=== PATIENT | male | born 1940 | race Caucasian/White ===

== ENCOUNTER 2017-07-29 18:01 | Inpatient (IN) | payer OTHER, MEDICAID, MEDICARE ==
[~2017-07-29] VITALS: Ht 165.1 cm; Wt 90.0 kg
[~2017-07-29 18:01] MED LIST: ATOR40TA49 PO; CO Q60CA2 PO; FISHOIL PO; FURO20 PO; GLUCTAB PO; LISI2.5T55 PO; LUTE20CA PO; METO25 PO; MULTTAB50 PO; PERC5TAB12 PO; PRAV10 PO; ST J81CH PO; TAMS0.4C67 PO
[2017-07-29 18:02] VITALS: BP 209/122; PULSE 79; RESP 18; TEMP 97.7; O2SAT 93
--- NOTE | 2017-07-29 18:44 | RADRPT ---
EXAM DATE/TIME: 07/29/2017 18:20 [place] COMPARISON: CHEST PA & LAT, June 14, 2012, 8:29. INDICATIONS : Shortness of breath. MEDICAL HISTORY : Hypertension. Chronic obstructive pulmonary disease. Diabetes mellitus type II. SURGICAL HISTORY : CABG. ENCOUNTER: Initial ACUITY: 1 week PAIN SCORE: 0/10 LOCATION: Bilateral chest FINDINGS: Interval median sternotomy. Trace bilateral pleural effusions with associated airspace disease in the lower lobes. Cardiac silhouette is minimally prominent. There is diffuse interstitial prominence. Re mainder of the exam is unchanged. CONCLUSION: 1. Mild cardiomegaly and positive fluid balance. 2. Trace bilateral pleural effusions and associated airspace disease at the lung bases, presumably at electasis. Sabino Fuentes MD on July 29, 2017 at 18:41 Board Certified Radiologist. This report was verified electronically.
[2017-07-29 21:08] LABS: AUTOMATED NEUTROPHIL # 4.4 TH/MM3 (1.8-7.7); BASOPHIL % 0.3 % (0.0-2.0); EOSINOPHIL # 0.1 TH/MM3 (0-0.4); EOSINOPHIL % 1.3 % (0.0-4.0); HEMATOCRIT 32.5 % (39.0-51.0); HEMOGLOBIN 10.6 GM/DL (13.0-17.0); LYMPH % 21.7 % (9.0-44.0); LYMPHOCYTE # 1.5 TH/MM3 (1.0-4.8); MEAN CELL VOLUME 97.2 FL (80.0-100.0); MEAN CORPUSCULAR HEMOGLOBIN 31.6 PG (27.0-34.0); MEAN CORPUSCULAR HGB CONC 32.5 % (32.0-36.0); MEAN PLATELET VOLUME 7.9 FL (7.0-11.0); MONO % 12.6 % (0.0-8.0); MONOCYTE # 0.9 TH/MM3 (0-0.9); NEUT % 64.1 % (16.0-70.0); PLATELET COUNT 250 TH/MM3 (150-450); RED BLOOD COUNT 3.34 MIL/MM3 (4.50-5.90); RED CELL DISTRIBUTION WIDTH 15.5 % (11.6-17.2); WHITE BLOOD COUNT 6.8 TH/MM3 (4.0-11.0)
[2017-07-29 21:34] LABS: ALBUMIN 3.5 GM/DL (3.4-5.0); AST (GOT) 21 U/L (15-37); BICARBONATE 22.2 MEQ/L (21.0-32.0); BLOOD UREA NITROGEN 33 MG/DL (7-18); CALCIUM 8.6 MG/DL (8.5-10.1); CHLORIDE 111 MEQ/L (98-107); CREATININE 1.87 MG/DL (0.60-1.30); GLOMERULAR FILTRATION RATE 35 ML/MIN (>89); GLUCOSE,RANDOM 89 MG/DL (74-106); SODIUM (NA) 142 MEQ/L (136-145)
[2017-07-29 21:35] LABS: ALT (GPT) 19 U/L (12-78)
[2017-07-29 21:39] LABS: ALKALINE PHOSPHATASE 91 U/L (45-117); TOTAL BILIRUBIN ADULT 0.4 MG/DL (0.2-1.0); TOTAL PROTEIN 7.1 GM/DL (6.4-8.2); TROPONIN I LESS THAN 0.02 NG/ML (0.02-0.05)
[2017-07-29 22:03] LABS: PROTHROMBIN TIME - PATIENT 10.4 SEC (9.8-11.6)
--- NOTE | 2017-07-29 22:55 | PD ---
HPI Chief Complaint: Respiratory Distress Time Seen by Provider: 22:51 Travel History International Travel<30 days: No Contact w/Intl Traveler<30days: No Traveled to known affect area: No History of Present Illness HPI The patient is a 77 year old a male who presents to the [facility] emergency department with a history of shortness of breath associated with chest pressure that began 3 days ago and is gradually getting worse with time. He has a more frequent cough that is occasionally productive of yellow sputum. He reports that his cough is slightly worse than usual. He does have a history of COPD. The patient continues to smoke 1 pack of cigarettes daily. The patient also has a known history of coronary artery disease with coronary artery bypass grafting 5 years ago. 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 He cannot recall when he last had a stress test. He reports that the symptoms of shortness of breath are similar to his symptoms prior to having his bypass. He does also have a history of congestive heart failure. He is on Lasix 20 mg every morning. He denies having any recent changes in the dose of his medicine. He reports that he has had increased lower extremity edema. He denies having any calf pain or erythema. He denies any prior history of DVT or PE. On review of systems otherwise, the patient denies having any known recent fevers, neck pain, abdominal pain, vomiting, urinary symptoms, or neurologic symptoms. The patient incidentally reports that 2 weeks ago he did have a prolonged illness with diarrhea and was seen in his doctor's office, IV was obtained and he was hydrated. The patient reports that his stool studies were negative for C. difficile. He reports that he has been moving his bowels regularly since then. He had a normal bowel movement today [facility] Past Medical History Narrative Medical The patient's past medical history is significant for CAD, hypertension, CHF, COPD tobacco abuse, obesity, hyperlipidemia. Automation Controls Expert: [facility]- Dr. Guzman. PCP: [place] kali Hoffman Anticoagulant Therapy: Yes Blood Disorders: No Anxiety: No Depression: No Cancer: No Cardiac Catheterization: Yes (X 1) Cardiovascular Problems: Yes (CABG, HTN, cholesterol) Congestive Heart Failure: Yes COPD: Yes Coronary Artery Disease: Yes Diabetes: Yes Endocrine: Yes Gastrointestinal Disorders: Yes (GASTRIC BYPASS Jun) Genitourinary: No Hypertension: Yes Musculoskeletal: No Neurologic: No Psychiatric: No Reproductive: No Respiratory: Yes Past Surgical History Narrative Surgical The patient's past surgical history is significant for CABG of 2 vessels, history of cardiac catheterization. Coronary Artery Bypass Graft: Yes (3 VESSELS) Pacemaker: No Other Surgery: Yes (COLONSCOPY) Social History Alcohol Use: No Tobacco Use: Yes (1 pack per day) Substance Use: No Allergies-Medications (Allergen,Severity, Reaction): Coded Allergies: No Known Allergies (Unverified , 12/16/12) Reported Meds & Prescriptions Reported Meds & Active Scripts Active Flomax (Tamsulosin HCl) 0.4 Mg Cap 0.4 Mg PO DAILY 10 Days Reported Lasix 20 Mg Tab (Furosemide) 20 Mg Tab 20 Mg PO DAILY Lipitor 40 Mg Tab (Atorvastatin Calcium) 40 Mg Tab 40 Mg PO DAILY Pravastatin Sodium (Pravastatin Sod) 10 Mg Tab 10 Mg PO DAILY Aspirin 81 mg chewable (Aspirin) 81 Mg Chw 81 Mg PO DAILY Metoprolol Tartrate 25 mg (Metoprolol Tartrate) 25 Mg Tab 50 Mg PO DAILY Co Q 10 (Coenzyme Q10) 60 Mg Cap 60 Mg PO DAILY Lutein 20 Mg Cap 20 Mg PO DAILY Multi Vitamin Mens (Multiple Vitamin) Mens Tab 1 Tab PO DAILY Fish Oil Oil 1 Dose PO DAILY Lisinopril 2.5 mg (Lisinopril) 2.5 Mg Tab 5 Mg PO DAILY @ 1400 HOLD FOR SBP < 120 Review of Systems Except as stated in HPI: all other systems reviewed are Neg General / Constitutional: No: Fever Eyes: No: Visual changes HENT: No: Headaches Cardiovascular: Positive: Chest Pain or Discomfort, Dyspnea on exertion, Edema Respiratory: Positive: Cough, Shortness of Breath Gastrointestinal: No: Nausea, Vomiting, Diarrhea, Abdominal Pain Genitourinary: No: Dysuria Musculoskeletal: No: Pain Skin: No Rash Neurologic: No: Weakness, Focal Abnormalities, Change in Mentation, Slurred Speech, Sensory Disturbance Psychiatric: No: Depression Endocrine: No: Polydipsia Hematologic/Lymphatic: No: Easy Bruising Physical Exam Narrative General: The patient is a well-developed well-nourished male in no acute distress. Head and Neck exam: Head is normocephalic atraumatic. Eyes: EOMI, pupils are equal round and reactive to light. Nose: Midline septum with pink mucous membranes Mouth: Dentition unremarkable. Moist mucus membranes. Posterior oropharynx is not erythematous. No tonsillar hypertrophy. Uvula midline. Airway patent. Neck: No palpable lymphadenopathy. No nuchal rigidity. No thyromegaly. Cardiovascular: Regular rate and rhythm without murmurs, gallops, or rubs. No pulse deficit to the extremities on simultaneous auscultation and palpation of his radial artery. Lungs: Crackles audible in bilateral lung bases. No rhonchi audible. The patient has soft expiratory wheezes audible anteriorly. No accessory muscle use noted. No tripoding or paroxysmal abdominal breathing. Abdomen: Soft, without tenderness to palpation in all 4 quadrants of the abdomen. No guarding, rebound, or rigidity. Normal bowel sounds are audible. No tenderness on palpation of McBurney's point. Negative Grant sign. Extremities: No clubbing or cyanosis. The patient has 1+ pitting edema. No calf tenderness on palpation. Negative Homans sign. No palpable cords. 2+ pulses in all 4 extremities. Back: No spinous process tenderness to palpation. No costovertebral angle tenderness to palpation. Neurologic Exam: Grossly nonfocal. Skin Exam: No rash noted. Intact skin that is warm and dry. Data Data Last Documented VS Vital Signs Date Time Temp Pulse Resp B/P (MAP) Pulse Ox O2 Delivery O2 Flow Rate FiO2 07/30/17 00:00 97.5 73 16 182/98 (126) 94 07/29/17 18:02 Room Air Orders Orders Complete Blood Count With Diff (07/29/17 18:10) Comprehensive Metabolic Panel (07/29/17 18:10) B-Type Natriuretic Peptide (07/29/17 18:10) Act Partial Throm Time (Ptt) (07/29/17 18:10) Prothrombin Time / Inr (Pt) (07/29/17 18:10) Magnesium (Mg) (07/29/17 18:10) Ckmb (Isoenzyme) Profile (07/29/17 18:10) Troponin I (07/29/17 18:10) Electrocardiogram (07/29/17 18:10) Chest, Pa & Lat (07/29/17 18:10) CKMB (07/29/17 20:07) CKMB% (07/29/17 20:07) Furosemide Inj (Lasix Inj) (07/29/17 23:30) Nitroglycerin Sl (Nitrostat Sl) (07/29/17 23:30) Nitroglycerin 2% Oint (Nitroglycerin 2% (07/29/17 23:30) Aspirin Chew (Aspirin Chew) (07/29/17 23:30) Admit Order (Ed Use Only) (07/30/17 00:05) Labs Laboratory Tests Test 07/29/17 20:07 White Blood Count 6.8 TH/MM3 Red Blood Count 3.34 MIL/MM3 Hemoglobin 10.6 GM/DL Hematocrit 32.5 % Mean Corpuscular Volume 97.2 FL Mean Corpuscular Hemoglobin 31.6 PG Mean Corpuscular Hemoglobin Concent 32.5 % Red Cell Distribution Width 15.5 % Platelet Count 250 TH/MM3 Mean Platelet Volume 7.9 FL Neutrophils (%) (Auto) 64.1 % Lymphocytes (%) (Auto) 21.7 % Monocytes (%) (Auto) 12.6 % Eosinophils (%) (Auto) 1.3 % Basophils (%) (Auto) 0.3 % Neutrophils # (Auto) 4.4 TH/MM3 Lymphocytes # (Auto) 1.5 TH/MM3 Monocytes # (Auto) 0.9 TH/MM3 Eosinophils # (Auto) 0.1 TH/MM3 Basophils # (Auto) 0.0 TH/MM3 CBC Comment DIFF FINAL Differential Comment Prothrombin Time 10.4 SEC Prothromb Time International Ratio 1.0 RATIO Activated Partial Thromboplast Time 26.5 SEC Blood Urea Nitrogen 33 MG/DL Creatinine 1.87 MG/DL Random Glucose 89 MG/DL Total Protein 7.1 GM/DL Albumin 3.5 GM/DL Calcium Level 8.6 MG/DL Magnesium Level 2.0 MG/DL Alkaline Phosphatase 91 U/L Aspartate Amino Transf (AST/SGOT) 21 U/L Alanine Aminotransferase (ALT/SGPT) 19 U/L Total Bilirubin 0.4 MG/DL Sodium Level 142 MEQ/L Potassium Level 4.0 MEQ/L Chloride Level 111 MEQ/L Carbon Dioxide Level 22.2 MEQ/L Anion Gap 9 MEQ/L Estimat Glomerular Filtration Rate 35 ML/MIN Total Creatine Kinase 158 U/L Creatine Kinase MB 1.8 NG/ML Troponin I LESS THAN 0.02 NG/ML B-Type Natriuretic Peptide 888 PG/ML MDM Medical Decision Making Medical Screen Exam Complete: Yes Emergency Medical Condition: Yes Medical Record Reviewed: Yes Interpretation(s) Last Impressions Chest X-Ray 07/29/170 Signed Impressions: Service Date/Time: Saturday, July 29, 2017 18:20 - CONCLUSION: 1. Mild cardiomegaly and positive fluid balance. 2. Trace bilateral pleural effusions and associated airspace disease at the lung bases, presumably atelectasis. Sabino Fuentes MD Differential Diagnosis Acute coronary syndrome, versus congestive heart failure exacerbation, versus COPD exacerbation, versus pneumonia, versus pulmonary embolism Narrative Course During the course of the patient's emergency department visit, the patient's history, examination, and differential diagnosis were reviewed with the patient. The patient was placed on a director of cardiac rehabilitation with oximetry and frequent blood pressure monitoring. The patient had IV access obtained and blood work sent for analysis. An EKG was ordered. The patient was initially provided the patient was given Lasix 40 mg IV, nitroglycerin 1 inch to the chest wall, nitroglycerin sublingual every 5 minutes 3 as needed chest pain, aspirin 324 mg p.o. 1. The patient's laboratory studies were reviewed and remarkable for a white count of 6.8, hemoglobin 10.6, platelets 250 with 12.6 monocytes, CMP is remarkable for a chloride of 111, BUN 33, creatinine 1.87, cardiac enzymes within normal limits, BNP 888. PT 10.4, PTT 26.5. Chest x-ray consistent with pulmonary edema with cardiomegaly. The patient's results were discussed with the patient, including the plan of care. I explained that further testing and/ or monitoring is indicated based on the patient's history, examination, and/ or laboratory findings. Therefore, I recommended admission for additional evaluation. The patient expressed understanding and was agreeable with this plan. The patient was admitted to the hospital in stable condition and sent to a bed under the care of [-]. Physician Communication Physician Communication The patient's case including history, pertinent physical examination findings, and laboratory studies were discussed with Dr. Ferrara. It was agreed that the patient would be admitted to the [facility] service. Diagnosis Primary Impression: CHF exacerbation Qualified Codes: I50.9 - Heart failure, unspecified Admitting Information Admitting Physician Requests: Scarlet Dahl MD Jul 29, 2017 22:55
[2017-07-29] MEDS ORDERED: FUROSEMIDE 40 MG/4 ML VIAL IV PUSH ONE (23:30)
[2017-07-29] MEDS ORDERED: NITROGLYCERIN 0.4 MG SL 25 TABS/BTL SL PRN (23:30)
[2017-07-29] MEDS ORDERED: ASPIRIN 81 MG CHEW TAB CHEW ONE (23:30)
[2017-07-29] MEDS ORDERED: NITROGLYCERIN 2% OINT 1 GM PACKET TOPICAL ONE (23:30)
[2017-07-30] VITALS (13 sets, daily range): BP systolic 131–182; BP diastolic 65–98; PULSE 64–82; RESP 16–19; TEMP 97.5–98.2; O2SAT 90–94
[2017-07-30] MEDS ORDERED: ACETAMINOPHEN 325 MG TAB PO PRN (00:45)
[2017-07-30] MEDS ORDERED: DEXTROSE 50% IN WATER 50 ML VIAL(D50) IV PUSH PRN (00:45)
[2017-07-30] MEDS ORDERED: ONDANSETRON HCL 4 MG/2 ML VIAL IVP PRN (00:45)
[2017-07-30] MEDS ORDERED: GLUCAGON 1 MG/ML VIAL OTHER PRN (00:45)
[2017-07-30] MEDS ORDERED: RESP: ALBUTEROL 2.5 MG/IPRATROPIUM 0.5 MG NEB (PRN) NEB (00:45)
[2017-07-30] MEDS ORDERED: SODIUM CHLORIDE 0.9% FLUSH 10 ML FLUSH IV FLUSH PRN (00:45)
[2017-07-30] MEDS: HEPARIN SODIUM - SQ 10,000 UNITS/ML VIAL SQ SCH ×3 (01:37→17:31)
--- NOTE | 2017-07-30 02:06 | HHI.HP ---
[facility] Unknown Admission Diagnosis CHF exacerbation, CP r/o ACS Diagnoses: Travel History International Travel<30 Days: No Contact w/Intl Traveler <30 Da: No Traveled to Known Affected Are: No History of Present Illness 77-year-old male with a past medical history significant for coronary artery disease, diabetes mellitus, COPD, hypertension, hyperlipidemia and CHF (no recent echo for comparison) presents to the emergency department for evaluation of shortness of breath. The patient reports that for the past 3 days he has had increasing shortness of breath. He endorses simultaneous lower extremity bilateral edema. The patient states that shortness of breath is significantly worse with exertion and with lying flat. He endorses 3 days of a cough productive of yellow sputum. He denies any fever/chills. Denies any chest pain. No nausea/vomiting/diarrhea. Review of Systems Except as stated in HPI: all other systems reviewed are Neg Past Family Social History Past Medical History CAD status post CABG Diabetes mellitus COPD Hypertension Hyperlipidemia CHF Past Surgical History CABG 2 Cholecystectomy Reported Medications Reported Meds & Active Scripts Active Flomax (Tamsulosin HCl) 0.4 Mg Cap 0.4 Mg PO DAILY 10 Days Reported Lasix 20 Mg Tab (Furosemide) 20 Mg Tab 20 Mg PO DAILY Lipitor 40 Mg Tab (Atorvastatin Calcium) 40 Mg Tab 40 Mg PO DAILY Pravastatin Sodium (Pravastatin Sod) 10 Mg Tab 10 Mg PO DAILY Aspirin 81 mg chewable (Aspirin) 81 Mg Chw 81 Mg PO DAILY Metoprolol Tartrate 25 mg (Metoprolol Tartrate) 25 Mg Tab 50 Mg PO DAILY Co Q 10 (Coenzyme Q10) 60 Mg Cap 60 Mg PO DAILY Lutein 20 Mg Cap 20 Mg PO DAILY Multi Vitamin Mens (Multiple Vitamin) Mens Tab 1 Tab PO DAILY Fish Oil Oil 1 Dose PO DAILY Lisinopril 2.5 mg (Lisinopril) 2.5 Mg Tab 5 Mg PO DAILY @ 1400 HOLD FOR SBP < 120 Allergies: Coded Allergies: No Known Allergies (Unverified , 12/16/12) Family History Father with coronary artery disease Social History Smokes proximally one pack per day. Denies alcohol, illicit drugs. Physical Exam Vital Signs Vital Signs Date Time Temp Pulse Resp B/P (MAP) Pulse Ox O2 Delivery O2 Flow Rate FiO2 07/29/17 18:02 97.7 79 18 209/122 (151) 93 Room Air Physical Exam GENERAL: Obese, male sitting up in bed SKIN: No rashes, ecchymoses or lesions. Cool and dry. HEAD: Atraumatic. Normocephalic. No temporal or scalp tenderness. EYES: Pupils equal round and reactive. Extraocular motions intact. No scleral icterus. No injection or drainage. ENT: Nose without bleeding, purulent drainage or septal hematoma. Throat without erythema, tonsillar hypertrophy or exudate. Uvula midline. Airway patent. NECK: Trachea midline. No JVD or lymphadenopathy. Supple, nontender, no meningeal signs. CARDIOVASCULAR: Regular rate and rhythm without murmurs, gallops, or rubs. RESPIRATORY: Bilateral crackles in the bases. No wheezes, rales, rhonchi GASTROINTESTINAL: Abdomen soft, non-tender, nondistended. No hepato-splenomegaly , or palpable masses. No guarding. MUSCULOSKELETAL: 2+ pitting edema to the knees bilaterally. NEUROLOGICAL: Awake and alert. Cranial nerves II through XII intact. Motor and sensory grossly within normal limits. Normal speech. Laboratory Laboratory Tests Test 07/29/17 20:07 White Blood Count 6.8 Red Blood Count 3.34 Hemoglobin 10.6 Hematocrit 32.5 Mean Corpuscular Volume 97.2 Mean Corpuscular Hemoglobin 31.6 Mean Corpuscular Hemoglobin Concent 32.5 Red Cell Distribution Width 15.5 Platelet Count 250 Mean Platelet Volume 7.9 Neutrophils (%) (Auto) 64.1 Lymphocytes (%) (Auto) 21.7 Monocytes (%) (Auto) 12.6 Eosinophils (%) (Auto) 1.3 Basophils (%) (Auto) 0.3 Neutrophils # (Auto) 4.4 Lymphocytes # (Auto) 1.5 Monocytes # (Auto) 0.9 Eosinophils # (Auto) 0.1 Basophils # (Auto) 0.0 CBC Comment DIFF FINAL Differential Comment Prothrombin Time 10.4 Prothromb Time International Ratio 1.0 Activated Partial Thromboplast Time 26.5 Blood Urea Nitrogen 33 Creatinine 1.87 Random Glucose 89 Total Protein 7.1 Albumin 3.5 Calcium Level 8.6 Magnesium Level 2.0 Alkaline Phosphatase 91 Aspartate Amino Transf (AST/SGOT) 21 Alanine Aminotransferase (ALT/SGPT) 19 Total Bilirubin 0.4 Sodium Level 142 Potassium Level 4.0 Chloride Level 111 Carbon Dioxide Level 22.2 Anion Gap 9 Estimat Glomerular Filtration Rate 35 Total Creatine Kinase 158 Creatine Kinase MB 1.8 Troponin I LESS THAN 0.02 B-Type Natriuretic Peptide 888 Result Diagram: 07/29/17200607/29/172006 Caprini VTE Risk Assessment Caprini VTE Risk Assessment: Mod/High Risk (score >= 2) Caprini Risk Assessment Model Point Value = 1 Point Value = 2 Point Value = 3 Point Value = 5 Age 41-60 Minor surgery BMI > 25 kg/m2 Swollen legs Varicose veins or History of unexplained or recurrent spontaneous Oral contraceptives or hormone replacement Sepsis (< 1 month) Serious lung disease, including pneumonia (< 1 month) Abnormal pulmonary function Acute myocardial infarction Congestive heart failure (< 1 month) History of inflammatory bowel disease Medical patient at bed rest Age 61-74 Arthroscopic surgery Major open surgery (> 45 min) Laparoscopic surgery (> 45 min) Malignancy Confined to bed (> 72 hours) Immobilizing plaster cast Central venous access Age >= 75 History of VTE Family history of VTE Factor V Leiden Prothrombin [id number] Lupus anticoagulant Anticardiolipin antibodies Elevated serum homocysteine Heparin-induced thrombocytopenia Other congenital or acquired thrombophilia Stroke (< 1 month) Elective arthroplasty Hip, pelvis, or leg fracture Acute spinal cord injury (< 1 month) Prophylaxis Regimen Total Risk Factor Score Risk Level Prophylaxis Regimen 0-1 Low Early ambulation 2 Moderate Order ONE of the following: *Sequential Compression Device (SCD) *Heparin 5000 units SQ BID 3-4 Higher Order ONE of the following medications: *Heparin 5000 units SQ TID *Enoxaparin/Lovenox 40 mg SQ daily (WT < 150 kg, CrCl > 30 mL/min) *Enoxaparin/Lovenox 30 mg SQ daily (WT < 150 kg, CrCl > 10-29 mL/min) *Enoxaparin/Lovenox 30 mg SQ BID (WT < 150 kg, CrCl > 30 mL/min) AND/OR *Sequential Compression Device (SCD) 5 or more Highest Order ONE of the following medications: *Heparin 5000 units SQ TID (Preferred with Epidurals) *Enoxaparin/Lovenox 40 mg SQ daily (WT < 150 kg, CrCl > 30 mL/min) *Enoxaparin/Lovenox 30 mg SQ daily (WT < 150 kg, CrCl > 10-29 mL/min) *Enoxaparin/Lovenox 30 mg SQ BID (WT < 150 kg, CrCl > 30 mL/min) AND *Sequential Compression Device (SCD) Assessment and Plan Assessment and Plan Assessment/plan: 1. CHF exacerbation Chest x-ray significant for pulmonary vascular congestion, trace bilateral pleural effusions and cardiomegaly, personally reviewed BNP 888 IV Lasix Supplemental oxygen as needed Echo pending Patient previously seen by Dr. Sanchez approximately 5 years ago 2. COPD Duo nebs when necessary 3. Diabetes mellitus Siding scale insulin Monitor blood glucose 4. Hypertension/hyperlipidemia/CAD Continue home medications once reconciled 5. BENNETT BUN/creatinine 33/1.87 Monitor renal function Likely chronic component, baseline unknown Consider nephrology consult if renal function does not improve FEN Heart healthy diet Electrolytes: Monitor and replete when necessary Heparin Tanja Ferrara MD Jul 30, 2017 02:06
[2017-07-30 05:49] LABS: TROPONIN I 0.02 NG/ML (0.02-0.05)
[2017-07-30] MEDS: INSULIN ASPART SUPPLEMENTAL SCALE SQ SCH ×4 (08:00→22:08)
--- NOTE | 2017-07-30 08:01 | EKG ---
Date Performed: 07/29/2017 Time Performed: 19:58:59 PTAGE: 77 years EKG: Sinus rhythm WITH OCCASIONAL SUPRAVENTRICULAR PREMATURE COMPLEXES MARKED LEFT AXIS DEVIATION SEPTAL MYOCARDIAL IN FARCTION ABNORMAL ECG INTERPRETATION BASED ON A DEFAULT AGE OF 40 YEARS PREVIOUS TRACING : 07/22/2017 07.07 DOCTOR: David Peterson Interpretating Date/Time 07/30/2017 07:59:17
[2017-07-30] MEDS ORDERED: FUROSEMIDE 40 MG/4 ML VIAL IV PUSH SCH (09:00)
[2017-07-30] MEDS: SODIUM CHLORIDE 0.9% FLUSH 10 ML FLUSH IV FLUSH SCH ×2 (09:38→21:00)
[2017-07-30 14:03] LABS: TROPONIN I LESS THAN 0.02 NG/ML (0.02-0.05)
[2017-07-30 14:07] LABS: BICARBONATE 20.5 MEQ/L (21.0-32.0); CALCIUM 8.2 MG/DL (8.5-10.1); CREATININE 3.82 MG/DL (0.60-1.30)
--- NOTE | 2017-07-30 14:46 | HHI.PR ---
Subjective Remarks feeling much better leg swelling per patient improved Objective Vitals Vital Signs Date Time Temp Pulse Resp B/P (MAP) Pulse Ox O2 Delivery O2 Flow Rate FiO2 07/30/17 12:11 98.1 64 18 152/74 (100) 93 07/30/17 09:29 Nasal Cannula 1.00 07/30/17 08:11 98.2 75 19 156/74 (101) 91 07/30/17 06:21 94 Nasal Cannula 1.00 07/30/17 04:00 97.7 76 16 131/74 (93) 92 07/30/17 00:00 97.5 73 16 182/98 (126) 94 07/29/17 18:02 97.7 79 18 209/122 (151) 93 Room Air Result Diagram: 07/29/17200607/30/17 1252 Imaging Last Impressions Chest X-Ray 07/29/17 1810 Signed Impressions: Service Date/Time: Saturday, July 29, 2017 18:20 - CONCLUSION: 1. Mild cardiomegaly and positive fluid balance. 2. Trace bilateral pleural effusions and associated airspace disease at the lung bases, presumably atelectasis. Sabino Fuentes MD Objective Remarks awake and alert, no acute distress anicteric decreased breeth sounds bases, no rales regular rhythm abdomen soft trace ankle edema neuro exam- non focal A/P Assessment and Plan 77 years old 1. CHF exacerbation Chest x-ray significant for pulmonary vascular congestion, trace bilateral pleural effusions and cardiomegaly, personally reviewed BNP 888 Clinically feels better after diuresis - but we will hold Lasix with acute increase in creatinine Supplemental oxygen as needed Echo pending 2. COPD- no wheezes continue on duonebs q 6- per patient on this scheduled Duo nebs prn when necessary check walk test prior to DC 3. Diabetes mellitus- BS on lab 547 chekc a1C. repeated a stat BS now 187. continue to monitor Siding scale insulin Monitor blood glucose - as OP was on Glipiziede 2.5 mg bid- hold - his metformin was DC per patient due to diabetes teaching and reinforcement 4. Hypertension/hyperlipidemia/CAD home meds - on Lopressor 50 mg bid, Lisinopril 10 m g daiy, Lasix 20 mg daily- will hold both due to BENNETT simvastatin 20 mg , fenofibrate 160 mg daily 5. BENNETT on top of chronic Hyponatremia hold diuretics, hold ROBERTO gentle hydration- 42 cc/hr per - has CKI Nephrology consult Renal ultrasound I and O q shift HYperkalemia give x 1 Kayexalate FEN Heart healthy diet Electrolytes: Monitor and replete when necessary Heparin Marycruz Acevedo MD Jul 30, 2017 14:45
[2017-07-30] MEDS ORDERED: SODIUM POLYSTYRENE SULFONATE SUSP 15 GM/60 ML CUP PO ONE (15:00)
[2017-07-30] MEDS: SODIUM CHLOR 0.9% 1000 ML INJ 1,000 ML IV SCH (15:03)
--- NOTE | 2017-07-30 15:24 | EKG ---
Date Performed: 07/30/2017 Time Performed: 07:48:12 PTAGE: 77 years EKG: Sinus arrhythmia with multifocal PVCs with 1st degree A-V block Left axis deviation Poor R wave progression - probable normal variant Lateral T wave changes are nonspecific Low QRS voltages in limb leads Abnormal ECG PREVIOUS TRACING : 07/30/2017 05.27 DOCTOR: David Peterson Interpretating Date/Time 07/30/2017 15:22:03
--- NOTE | 2017-07-30 15:27 | EKG ---
Date Performed: 07/30/2017 Time Performed: 05:27:54 PTAGE: 77 years EKG: Sinus rhythm with PVC(s) with 1st degree A-V block Left axis deviation Poor R wave progression - probable normal variant Lateral ST-T changes are nonspecific Low QRS voltages in limb leads Abnormal ECG PREVIOUS TRACING : 07/29/2017 19.58 DOCTOR: David Peterson Interpretating Date/Time 07/30/2017 15:25:17
[2017-07-30] MEDS: RESP: ALBUTEROL 2.5 MG/IPRATROPIUM 0.5 MG NEB (SCH) NEB ×2 (16:42→21:17)
--- NOTE | 2017-07-30 16:51 | PD.CONS ---
[facility] Service Nephrology Consult Requested By Dr. Acevedo Reason for Consult BENNETT on CKD Primary Care Physician Unknown History of Present Illness Patient is a 77-year-old male with a past medical history significant for coronary artery disease, diabetes mellitus, COPD, hypertension, hyperlipidemia and CHF. Presents to ER for evaluation of shortness of breath. The patient reports that for the past 3 days he has had increasing shortness of breath, lower extremity bilateral edema, and orthopnea. He endorses 3 days of a cough productive of yellow sputum. Nephrology is consulted for worsening renal indices with a creatinine of 3.82 from 1.87 on admission. Also noted to be hyperkalemic at 5.6. Patient initially was treated with Lasix but now with worsening creatinine is being gently hydrated. Patient has a history of CKD per girlfriend and was taken off metformin over 4 months ago related to his kidney function. (Chandrika Cowan) Review of Systems Respiratory: COMPLAINS OF: Shortness of breath Cardiovascular: COMPLAINS OF: Lower Extremity Edema, Orthopnea, DENIES: Chest pain Gastrointestinal: DENIES: Diarrhea, Nausea, Vomiting (Chandrika Cowan) Past Family Social History Allergies: Coded Allergies: No Known Allergies (Unverified , 12/16/12) Past Medical History CAD Diabetes mellitus COPD Hypertension Hyperlipidemia CHF Past Surgical History CABG 2 Cholecystectomy Active Ordered Medications Current Medications Medications (Trade) Dose Ordered Sig/Chi Route Start Time Stop Time Status Last Admin (Nitrostat Sl) 0.4 mg Q5M PRN SL 07/29/17 23:30 (NS Flush) 2 ml UNSCH PRN IV FLUSH 07/30/17 00:45 (NS Flush) 2 ml BID IV FLUSH 07/30/17 09:00 07/30/17 09:38 (Tylenol) 650 mg Q4H PRN PO 07/30/17 00:45 (Zofran Inj) 4 mg Q6H PRN IVP 07/30/17 00:45 (Heparin Inj) 5,000 units Q8H SQ 07/30/17 01:00 07/30/17 09:39 (Lasix Inj) 40 mg BID@18 IV PUSH 07/30/17 09:00 Future Hold 07/30/17 09:40 (Duoneb Neb) 1 ampule Q4HR NEB PRN NEB 07/30/17 00:45 07/30/17 06:17 (D50w (Vial) Inj) 50 ml UNSCH PRN IV PUSH 07/30/17 00:45 (Glucagon Inj) 1 mg UNSCH PRN OTHER 07/30/17 00:45 (NovoLOG SUPPLEMENTAL SCALE) 1 ACHS SLIDING SCALE SQ 07/30/17 08:00 Sodium Chloride 1,000 ml @ 42 mls/hr [id number] IV 07/30/17 15:00 07/30/17 15:03 (Duoneb Neb) 1 ampule Q6HR NEB NEB 07/30/17 16:00 (Aspirin Chew) 81 mg DAILY PO 07/31/17 09:00 (Lopressor) 50 mg DAILY PO 07/31/17 09:00 (Pravachol) 10 mg DAILY PO 07/31/17 09:00 (Flomax) 0.4 mg DAILY PO 07/31/17 09:00 (Theragran) 1 tab DAILY PO 07/31/17 09:00 Family History Mother and father with CAD and diabetes Sister had ESRD on dialysis Social History Current smoker Denies ETOh use lives alone (Chandrika Cowan) Physical Exam Vital Signs Vital Signs Date Time Temp Pulse Resp B/P (MAP) Pulse Ox O2 Delivery O2 Flow Rate FiO2 07/30/17 16:25 97.6 74 18 158/65 (96) 92 07/30/17 12:11 98.1 64 18 152/74 (100) 93 07/30/17 09:29 Nasal Cannula 1.00 07/30/17 08:11 98.2 75 19 156/74 (101) 91 07/30/17 06:21 94 Nasal Cannula 1.00 07/30/17 04:00 97.7 76 16 131/74 (93) 92 07/30/17 00:00 97.5 73 16 182/98 (126) 94 07/29/17 18:02 97.7 79 18 209/122 (151) 93 Room Air Physical Exam GENERAL: Alert and oriented SKIN: Warm and dry. HEAD: Normocephalic. EYES: No scleral icterus. No injection or drainage. NECK: Supple, trachea midline. No JVD or lymphadenopathy. CARDIOVASCULAR: Regular rate and rhythm without murmurs, gallops, or rubs. RESPIRATORY: Breath sounds equal bilaterally, diminished. No accessory muscle use. O2 NC GASTROINTESTINAL: Abdomen soft, non-tender, nondistended. MUSCULOSKELETAL: No cyanosis. Moderate lower extremity edema BACK: Nontender without obvious deformity. No CVA tenderness. Laboratory Laboratory Tests Test 07/29/17 20:07 07/30/17 04:56 07/30/17 12:52 White Blood Count 6.8 Red Blood Count 3.34 Hemoglobin 10.6 Hematocrit 32.5 Mean Corpuscular Volume 97.2 Mean Corpuscular Hemoglobin 31.6 Mean Corpuscular Hemoglobin Concent 32.5 Red Cell Distribution Width 15.5 Platelet Count 250 Mean Platelet Volume 7.9 Neutrophils (%) (Auto) 64.1 Lymphocytes (%) (Auto) 21.7 Monocytes (%) (Auto) 12.6 Eosinophils (%) (Auto) 1.3 Basophils (%) (Auto) 0.3 Neutrophils # (Auto) 4.4 Lymphocytes # (Auto) 1.5 Monocytes # (Auto) 0.9 Eosinophils # (Auto) 0.1 Basophils # (Auto) 0.0 CBC Comment DIFF FINAL Differential Comment Prothrombin Time 10.4 Prothromb Time International Ratio 1.0 Activated Partial Thromboplast Time 26.5 Blood Urea Nitrogen 33 45 Creatinine 1.87 3.82 Random Glucose 89 547 Total Protein 7.1 Albumin 3.5 Calcium Level 8.6 8.2 Magnesium Level 2.0 Alkaline Phosphatase 91 Aspartate Amino Transf (AST/SGOT) 21 Alanine Aminotransferase (ALT/SGPT) 19 Total Bilirubin 0.4 Sodium Level 142 127 Potassium Level 4.0 5.6 Chloride Level 111 97 Carbon Dioxide Level 22.2 20.5 Anion Gap 9 10 Estimat Glomerular Filtration Rate 35 16 Total Creatine Kinase 158 152 87 Creatine Kinase MB 1.8 Troponin I LESS THAN 0.02 0.02 LESS THAN 0.02 B-Type Natriuretic Peptide 888 (Chandrika Cowan) Result Diagram: 07/29/17200607/30/17 1252 Imaging Last Impressions Chest X-Ray 07/29/17 1810 Signed Impressions: Service Date/Time: Saturday, July 29, 2017 18:20 - CONCLUSION: 1. Mild cardiomegaly and positive fluid balance. 2. Trace bilateral pleural effusions and associated airspace disease at the lung bases, presumably atelectasis. Sabino Fuentes MD (Chandrika Cowan) Assessment and Plan Problem List: (1) BENNETT (acute kidney injury) ICD Codes: N17.9 - Acute kidney failure, unspecified Plan: BENNETT on CKD. BENNETT from possible prerenal azotemia from diuresis CKD from diabetes vs HTN vs renovascular disease Creatinine of 3.82 from 1.87 on admission Hyperkalemic at 5.6 Kayaxalate given will repeat K level. Will order renal US UA C+S Maintain strict I+O's Avoid nephrotoxins Monitor UOP and BMP (2) Hyperkalemia ICD Codes: E87.5 - Hyperkalemia (3) CKD (chronic kidney disease) ICD Codes: N18.9 - Chronic kidney disease, unspecified (Chandrika Cowan) Problem List: (1) BENNETT (acute kidney injury) ICD Codes: N17.9 - Acute kidney failure, unspecified Plan: BENNETT on CKD. BENNETT from possible prerenal azotemia from diuresis CKD from diabetes vs HTN vs renovascular disease Creatinine of 3.82 from 1.87 on admission Hyperkalemic at 5.6 Kayexalate given will repeat K level. Will order renal US UA C+S Maintain strict I+O's Avoid nephrotoxins Monitor UOP and BMP. Patient seen and examined, agree with above. Most likely has chronic kidney disease and develop BENNETT. Follow the workup. 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 (2) Hyperkalemia ICD Codes: E87.5 - Hyperkalemia (3) CKD (chronic kidney disease) ICD Codes: N18.9 - Chronic kidney disease, unspecified (Elder Monterroso MD) Chandrika Cowan Jul 30, 2017 16:51 Elder Monterroso MD Jul 30, 2017 19:21
[2017-07-30 19:47] LABS: BILIRUBIN, URINE NEG (NEG); BLOOD, URINE TRACE (NEG); GLUCOSE,URINE NEG (NEG); KETONE, URINE NEG (NEG); MUCUS URINE FEW /lpf (OCC); NITRITE,URINE NEG (NEG); PH, URINE 5.5 (5.0-8.5); URINE COLOR LIGHT-YELLOW (YELLW/STRAW); URINE LEUKOCYTE ESTERASE NEG (NEG)
--- NOTE | 2017-07-30 22:22 | RADRPT ---
EXAM DATE/TIME: 07/30/2017 21:40 [place] COMPARISON: No previous studies available for comparison. INDICATIONS : Increased BUN and Creatinine. MEDICAL HISTORY : Hypercholesterolemia. Chronic obstructive pulmonary disease. Myocardial infarction. Congestive heart failure. Coronary artery disease. Anticoagulant therapy. Hypertension. Diabetes. Measles. SURGICAL HISTORY : Cholecystectomy. Gastric bypass. CABG. EGD/Colonoscopy. ENCOUNTER: Initial ACUITY: 1 day PAIN SCORE: 1/10 LOCATION: Bilateral flank MEASUREMENTS: RIGHT KIDNEY: 13.0 x 5.8 x 5.4 cm LEFT KIDNEY: 14.2 x 7.2 x 7.2 cm FINDINGS: RIGHT KIDNEY: Renal cortex is normal in thickness. The echogenicity is mildly increased. No hydronephrosis, stone, or mass. LEFT KIDNEY: Renal cortex is normal in thickness. The echogenicity is mildly increased.. No hydronephrosis, stone , or mass. Note is made of a 5.5 x 5.4 cm simple cyst. BLADDER: Within normal limits given the degree of distension. CONCLUSION: 1. Mildly increased echogenicity of the renal cortex suggesting underlying medical renal disease. 2. 5.5 x 5.4 cm simple cyst on the left. Ean Barlow MD on July 30, 2017 at 22:19 Board Certified Radiologist. This report was verified electronically.
[2017-07-31] VITALS (10 sets, daily range): BP systolic 127–158; BP diastolic 60–86; PULSE 67–86; RESP 16–18; TEMP 97.6–98; O2SAT 92–94
[2017-07-31] MEDS: HEPARIN SODIUM - SQ 10,000 UNITS/ML VIAL SQ SCH ×3 (00:11→17:31)
[2017-07-31] MEDS: RESP: ALBUTEROL 2.5 MG/IPRATROPIUM 0.5 MG NEB (SCH) NEB ×4 (02:54→21:19)
[2017-07-31 06:52] LABS: AUTOMATED NEUTROPHIL # 3.9 TH/MM3 (1.8-7.7); BASOPHIL % 0.7 % (0.0-2.0); EOSINOPHIL # 0.2 TH/MM3 (0-0.4); EOSINOPHIL % 2.9 % (0.0-4.0); HEMATOCRIT 30.9 % (39.0-51.0); HEMOGLOBIN 10.5 GM/DL (13.0-17.0); LYMPHOCYTE # 1.7 TH/MM3 (1.0-4.8); MEAN CELL VOLUME 96.1 FL (80.0-100.0); MEAN CORPUSCULAR HEMOGLOBIN 32.5 PG (27.0-34.0); MEAN CORPUSCULAR HGB CONC 33.8 % (32.0-36.0); MEAN PLATELET VOLUME 7.6 FL (7.0-11.0); MONO % 10.9 % (0.0-8.0); MONOCYTE # 0.7 TH/MM3 (0-0.9); NEUT % 59.5 % (16.0-70.0); PLATELET COUNT 256 TH/MM3 (150-450); RED BLOOD COUNT 3.22 MIL/MM3 (4.50-5.90); RED CELL DISTRIBUTION WIDTH 15.5 % (11.6-17.2); WHITE BLOOD COUNT 6.6 TH/MM3 (4.0-11.0)
[2017-07-31 07:15] LABS: PHOSPHORUS 4.1 MG/DL (2.5-4.9)
[2017-07-31 07:35] LABS: BICARBONATE 24.3 MEQ/L (21.0-32.0); CALCIUM 8.2 MG/DL (8.5-10.1); CREATININE 2.02 MG/DL (0.60-1.30)
[2017-07-31] MEDS: INSULIN ASPART SUPPLEMENTAL SCALE SQ SCH ×4 (08:00→21:01)
[2017-07-31] MEDS: SODIUM CHLORIDE 0.9% FLUSH 10 ML FLUSH IV FLUSH SCH ×2 (08:23→21:00)
[2017-07-31] MEDS: PRAVASTATIN SOD 10 MG TAB PO SCH (08:24)
[2017-07-31] MEDS: ASPIRIN 81 MG CHEW TAB PO SCH (08:24)
[2017-07-31] MEDS: TAMSULOSIN HCL 0.4 MG CAP PO SCH (08:24)
[2017-07-31] MEDS: MULTIVITAMIN TAB PO SCH (08:25)
[2017-07-31] MEDS ORDERED: FISH OIL PO SCH (09:00)
[2017-07-31] MEDS ORDERED: METOPROLOL TARTRATE 50 MG TAB PO SCH (09:00)
[2017-07-31] MEDS ORDERED: LUTEIN 20 MG PO SCH (09:00)
[2017-07-31] MEDS ORDERED: ATORVASTATIN 40 MG TAB PO SCH (09:00)
[2017-07-31] MEDS ORDERED: COENZYME Q10 60 MG PO SCH (09:00)
--- NOTE | 2017-07-31 11:23 | HHI.PR ---
Subjective Remarks feeling better, up on chair Short of breath with increase exertion voiding well Objective Vitals Vital Signs Date Time Temp Pulse Resp B/P (MAP) Pulse Ox O2 Delivery O2 Flow Rate FiO2 07/31/17 08:33 97.6 67 18 157/72 (100) 94 07/31/17 04:00 74 07/31/17 04:00 98.0 75 16 127/60 (82) 92 07/31/17 00:00 74 07/31/17 00:00 Nasal Cannula 1.50 07/30/17 23:52 97.8 77 18 154/73 (100) 91 07/30/17 21:26 92 Nasal Cannula 1.00 07/30/17 20:05 97.7 75 18 156/74 (101) 93 07/30/17 20:00 74 07/30/17 20:00 Nasal Cannula 1.50 07/30/17 18:20 97.9 82 18 170/71 (104) 90 07/30/17 16:25 97.6 74 18 158/65 (96) 92 07/30/17 16:00 73 07/30/17 12:11 98.1 64 18 152/74 (100) 93 I/O 07/30/17 07/30/17 07/30/17 07/31/17 07/31/17 07/31/17 07:00 15:00 23:00 07:00 15:00 23:00 Intake Total 1056 ml 120 ml Output Total 800 ml 400 ml Balance 256 ml -280 ml Intake Oral 720 ml 120 ml IV Total 336 ml Output Urine Total 800 ml 400 ml # Bowel Movements 1 0 Result Diagram: 07/31/17 0540 07/31/17 0540 Imaging Last Impressions Renal Ultrasound 07/30/17 0000 Signed Impressions: Service Date/Time: Sunday, July 30, 2017 21:40 - CONCLUSION: 1. Mildly increased echogenicity of the renal cortex suggesting underlying medical renal disease. 2. 5.5 x 5.4 cm simple cyst on the left. Ean Barlow MD Chest X-Ray 07/29/17 1810 Signed Impressions: Service Date/Time: Saturday, July 29, 2017 18:20 - CONCLUSION: 1. Mild cardiomegaly and positive fluid balance. 2. Trace bilateral pleural effusions and associated airspace disease at the lung bases, presumably atelectasis. Sabino Fuentes MD Objective Remarks awake and alert, no acute distress anicteric decreased breath sounds bases, no rales regular rhythm abdomen soft trace pretibial edema neuro exam- non focal A/P Assessment and Plan 77 years old Hypertensive urgency presenting with acute CHF- SOB/leg swelling on admission with BNP 888 hyperlipidemia/CAD home meds -was on Lopressor 50 mg bid, Lisinopril 10 m g daiy, Lasix 20 mg daily- will hold both due to BENNETT simvastatin 20 mg , fenofibrate 160 mg daily Clinically feels better after diuresis since admission- but Lasix held with acute increase in creatinine 07/30 02 NC Echo pending EKG with no acute changes hold ROBERTO with BENNETT and tendency for hyperkalemia consult cardiology for recommendation- need for ? ischemic work up - stress test change Lopressor to Coreg 25 mg po bid. ASA daily BENNETT on top of chronic- creatinine trending down Hyponatremia- improved hold diuretics, hold ROBERTO continue gentle hydration- 42 cc/hr and reevaluate in am Renal ultrasound- chronic medical disease- no obstruction I and O q shift HYperkalemia- resolved S/P Kayexalate 07/29 COPD- no wheezes continue on duonebs q 6- per patient on this scheduled Duo nebs prn when necessary check walk test prior to DC Diabetes mellitus- BS on lab 547 [facility] a1C. repeated a stat BS now 187. continue to monitor Siding scale insulin Monitor blood glucose - as OP was on Glipiziede 2.5 mg bid- hold - his metformin was DC per patient due to diabetes teaching and reinforcement 4. 5. Electrolytes: Monitor and replete when necessary Heparin Marycruz Acevedo MD Jul 31, 2017 11:23
--- NOTE | 2017-07-31 11:43 | ECHRPT ---
Indication: heart failure CONCLUSIONS Normal left ventricular size. The left ventricular systolic function is normal with an estimated ejection fraction in the range of 55-60%. Mild mitral valve regurgitation. mitral annular calcification Trace aortic valve regurgitation. There is mild tricuspid valve regurgitation. The pulmonary valve is not well visualized. BP: / HR: Rhythm: MEASUREMENTS (Male / Female) Normal Values Technical Quality:Good 2D ECHO LV Diastolic Diameter PLAX 4.3 cm 4.2 - 5.9 / 3.9 - 5.3 cm LV Systolic Diameter PLAX 3.3 cm IVS Diastolic Thickness 1.6 cm 0.6 - 1.0 / 0.6 - 0.9 cm LVPW Diastolic Thickness 1.4 cm 0.6 - 1.0 / 0.6 - 0.9 cm LV Relative Wall Thickness 0.7 RV Internal Dim ED PLAX 3.3 cm M-MODE Aortic Root Diameter MM 2.9 cm LA Systolic Diameter MM 4.5 cm LA Ao Ratio MM 1.6 AV Cusp Separation MM 2.0 cm DOPPLER Mitral E Point Velocity 88.4 cm/s Mitral A Point Velocity 92.3 cm/s Mitral E to A Ratio 1.0 LV E' Lateral Velocity 12.0 cm/s Mitral E to LV E' Lateral Ratio 7.4 LV E' Septal Velocity 11.6 cm/s Mitral E to LV E' Septal Ratio 7.6 FINDINGS LEFT VENTRICLE Normal left ventricular size. The left ventricular systolic function is normal with an estimated ejection fraction in the range of 55-60%. RIGHT VENTRICLE Normal right ventricular size and systolic function. LEFT ATRIUM The left atrial size is normal. RIGHT ATRIUM The right atrial size is normal. ATRIAL SEPTUM Normal atrial septal thickness without atrial level shunting by limited color doppler interrogation. AORTA The aortic root and proximal ascending aorta are normal in size on limited imaging. MITRAL VALVE Structurally normal mitral valve. Mild mitral valve regurgitation. AORTIC VALVE Trileaflet aortic valve. Trace aortic valve regurgitation. TRICUSPID VALVE Structurally normal tricuspid valve. There is mild tricuspid valve regurgitation. PULMONARY VALVE The pulmonary valve is not well visualized. VESSELS The inferior vena cava is normal in size. PERICARDIUM No pericardial effusion. Vadim Brooks MD, FACC, FSCAI (Electronically Signed) Final Date:31 July 2017 11:42
[2017-07-31] MEDS: SODIUM CHLOR 0.9% 1000 ML INJ 1,000 ML IV SCH (14:49)
--- NOTE | 2017-07-31 15:53 | HHI.NPPN ---
Subjective History of Present Illness 77-year-old male with a past medical history significant for coronary artery disease, diabetes mellitus, COPD, hypertension, hyperlipidemia and CHF. Presents to ER for evaluation of shortness of breath. The patient reports that for the past 3 days he has had increasing shortness of breath, lower extremity bilateral edema, and orthopnea. Additional Remarks Patient is alert, now started eating better, mild SOB, not in distress. Review of Systems General Constitutional: Fatigue Cardiovascular Cardiac: Edema, PRICE Objective Data Data Vital Signs Date Time Temp Pulse Resp B/P (MAP) Pulse Ox O2 Delivery O2 Flow Rate FiO2 07/31/17 12:58 94 Nasal Cannula 1.50 07/31/17 12:21 97.6 68 18 138/86 (103) 94 07/31/17 08:33 97.6 67 18 157/72 (100) 94 07/31/17 04:00 74 07/31/17 04:00 98.0 75 16 127/60 (82) 92 07/31/17 00:00 74 07/31/17 00:00 Nasal Cannula 1.50 07/30/17 23:52 97.8 77 18 154/73 (100) 91 07/30/17 21:26 92 Nasal Cannula 1.00 07/30/17 20:05 97.7 75 18 156/74 (101) 93 07/30/17 20:00 74 07/30/17 20:00 Nasal Cannula 1.50 07/30/17 18:20 97.9 82 18 170/71 (104) 90 07/30/17 16:25 97.6 74 18 158/65 (96) 92 07/30/17 16:00 73 -: 07/31/17 0540 07/31/17 0540 Physical Exam General Appearance: No Acute Distress, Comfortable Eyes Eye Exam: Pupils Equal Throat Throat Exam: Oral Mucosa [place] & Moist Pulmonary Resp Exam: Breath Sounds Equal, No Distress, Rhonchi, Decreased Bases Cardiology CV Exam: Regular, Normal Sinus Rhythm Gastrointestinal/Abdomen GI Exam: Soft, Non-Tender, Bowel Sounds Present Extremeties Extremities Exam: Trace Edema Neurologic Neuro Exam: Alert, Awake Psychiatric Psych Exam: Appropriate Responses Assessment/Plan Assessment Summary: BENNETT/Acute Renal Failure, CKD Stage III Problem List: (1) BENNETT (acute kidney injury) ICD Codes: N17.9 - Acute kidney failure, unspecified Plan: BENNETT on CKD. BENNETT from possible prerenal azotemia from diuresis CKD from diabetes vs HTN vs renovascular disease Creatinine of 3.82 from 1.87 on admission UA C+S Maintain strict I+O's Avoid nephrotoxins Monitor UOP and BMP. Patient has chronic kidney disease and develop BENNETT. 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 Renal U/S noted. His Creatinine was 1.7 in December 2016. (2) Hyperkalemia ICD Codes: E87.5 - Hyperkalemia (3) CKD (chronic kidney disease) ICD Codes: N18.9 - Chronic kidney disease, unspecified Elder Monterroso MD Jul 31, 2017 15:53
[2017-07-31] MEDS: CARVEDILOL 12.5 MG TAB PO SCH (21:00)
[2017-07-31 22:10] LABS: ALB/GLOB RATIO (SPE) 1.3 (1.39-2.23)
[2017-08-01] VITALS (12 sets, daily range): BP systolic 128–185; BP diastolic 58–84; PULSE 52–88; RESP 16–20; TEMP 97.6–98; O2SAT 90–98
[2017-08-01] MEDS: HEPARIN SODIUM - SQ 10,000 UNITS/ML VIAL SQ SCH ×3 (00:37→16:56)
[2017-08-01] MEDS: RESP: ALBUTEROL 2.5 MG/IPRATROPIUM 0.5 MG NEB (SCH) NEB ×4 (02:46→20:37)
[2017-08-01 07:39] LABS: BICARBONATE 24.4 MEQ/L (21.0-32.0); BLOOD UREA NITROGEN 28 MG/DL (7-18); CALCIUM 8.7 MG/DL (8.5-10.1); CHLORIDE 110 MEQ/L (98-107); CREATININE 1.98 MG/DL (0.60-1.30); GLOMERULAR FILTRATION RATE 33 ML/MIN (>89); GLUCOSE,RANDOM 126 MG/DL (74-106); SODIUM (NA) 141 MEQ/L (136-145)
[2017-08-01] MEDS: PRAVASTATIN SOD 10 MG TAB PO SCH (08:32)
[2017-08-01] MEDS: ASPIRIN 81 MG CHEW TAB PO SCH (08:32)
[2017-08-01] MEDS: MULTIVITAMIN TAB PO SCH (08:32)
[2017-08-01] MEDS: TAMSULOSIN HCL 0.4 MG CAP PO SCH (08:32)
[2017-08-01] MEDS: CARVEDILOL 12.5 MG TAB PO SCH ×2 (08:33→21:11)
[2017-08-01] MEDS: SODIUM CHLORIDE 0.9% FLUSH 10 ML FLUSH IV FLUSH SCH ×2 (08:41→21:12)
[2017-08-01] MEDS: INSULIN ASPART SUPPLEMENTAL SCALE SQ SCH ×4 (08:41→21:12)
--- NOTE | 2017-08-01 14:13 | HHI.NPPN ---
Subjective General Problems: Anemia Renal Failure: Chronic, Acute, Stage III History of Present Illness 77-year-old male with a past medical history significant for coronary artery disease, diabetes mellitus, COPD, hypertension, hyperlipidemia and CHF. Presents to ER for evaluation of shortness of breath. The patient reports that for the past 3 days he has had increasing shortness of breath, lower extremity bilateral edema, and orthopnea. Additional Remarks Patient is alert and OOB. Reports mild SOB. Mild lower extremity edema noted (Chandrika Cowan) Review of Systems General Constitutional: Fatigue (Chandrika Cowan) Respiratory Lungs: SOB (Chandrika Cowan) Cardiovascular Cardiac: Edema, PRICE (Chandrika Cowan) Gastrointestinal GI Remarks No abdominal pain (Chandrika Cowan) Objective Data Data Vital Signs Date Time Temp Pulse Resp B/P (MAP) Pulse Ox O2 Delivery O2 Flow Rate FiO2 08/01/17 09:07 90 Nasal Cannula 1.00 08/01/17 08:35 97.6 66 18 185/81 (115) 90 08/01/17 07:15 90 Nasal Cannula 1.00 08/01/17 04:01 97.8 67 16 148/58 (88) 93 08/01/17 03:58 Nasal Cannula 1.00 08/01/17 03:14 56 08/01/17 00:00 86 08/01/17 00:00 Nasal Cannula 1.00 08/01/17 00:00 97.9 67 17 147/68 (94) 93 07/31/17 20:00 97.6 77 18 158/79 (105) 92 07/31/17 20:00 86 07/31/17 18:40 95 Nasal Cannula 1.00 07/31/17 16:24 94 Nasal Cannula 1.00 07/31/17 16:08 97.9 80 18 148/65 (92) 94 07/31/17 16:00 83 (Chandrika Cowan) -: 07/31/17 0540 08/01/17 0633 Imaging Last Impressions Renal Ultrasound 07/30/17 0000 Signed Impressions: Service Date/Time: Sunday, July 30, 2017 21:40 - CONCLUSION: 1. Mildly increased echogenicity of the renal cortex suggesting underlying medical renal disease. 2. 5.5 x 5.4 cm simple cyst on the left. Ean Barlow MD Chest X-Ray 07/29/17 1810 Signed Impressions: Service Date/Time: Saturday, July 29, 2017 18:20 - CONCLUSION: 1. Mild cardiomegaly and positive fluid balance. 2. Trace bilateral pleural effusions and associated airspace disease at the lung bases, presumably atelectasis. Sabino Fuentes MD (Gellermann,Chandrika M. [employer] MANAGER) Physical Exam General Appearance: No Acute Distress, Comfortable (Gellermann,Chandrika M. [employer] MANAGER) Eyes Eye Exam: Pupils Equal (GellermannChandrika M. [employer] MANAGER) Throat Throat Exam: Oral Mucosa [place] & Moist (Gellermann,Chandrika M. [employer] MANAGER) Pulmonary Resp Exam: Breath Sounds Equal, No Distress, Decreased Bases (Gellermann,Chandrika M. [employer] MANAGER) Cardiology CV Exam: Regular, Normal Sinus Rhythm (GellermannChandrika M. [employer]NER [employer]IANCE MANAGER) Gastrointestinal/Abdomen GI Exam: Soft, Non-Tender, Bowel Sounds Present (Gellermann,Chandrika M. [employer] MANAGER) Integumentary Skin Exam: Warm, Dry (Gellermann,Chandrika M. [employer] MANAGER) Extremeties Extremities Exam: Trace Edema (Gellermann,Chandrika M. [employer]NER [employer]IANCE MANAGER) Neurologic Neuro Exam: Alert, Awake, Oriented (Gellermann,Chandrika M. [employer]ANCE MANAGER) Psychiatric Psych Exam: Appropriate Responses (GellertayeChandrika M. PARTNER [employer]IANCE MANAGER) Assessment/Plan Assessment Summary: BENNETT/Acute Renal Failure, CKD Stage III Problem List: (1) BENNETT (acute kidney injury) ICD Codes: N17.9 - Acute kidney failure, unspecified Plan: Patient has chronic kidney disease and develop BENNETT. 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 His Creatinine was 1.7 in December 2016 Proteinurea noted Creatinine 1.98 today UOP at 505 over last 24 hours Renal US with mildly increased echogenicity of the renal cortex suggesting underlying medical renal disease and also 5.5 x 5.4 cm simple cyst on the left. Plan Will discontinue IVF and encourage fluids Maintain strict I+O's Avoid nephrotoxins Continue to monitor UOP and BMP. (2) Hyperkalemia ICD Codes: E87.5 - Hyperkalemia (3) CKD (chronic kidney disease) ICD Codes: N18.9 - Chronic kidney disease, unspecified (Chandrika Cowan) Problem List: (1) BENNETT (acute kidney injury) ICD Codes: N17.9 - Acute kidney failure, unspecified Plan: Patient has chronic kidney disease and develop BENNETT. 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 His Creatinine was 1.7 in December 2016 Proteinurea noted Creatinine 1.98 today UOP at 505 over last 24 hours Renal US with mildly increased echogenicity of the renal cortex suggesting underlying medical renal disease and also 5.5 x 5.4 cm simple cyst on the left. Plan Will discontinue IVF and encourage fluids Maintain strict I+O's Avoid nephrotoxins Continue to monitor UOP and BMP. Patient seen and examined, agree with above. Chronic kidney disease with BENNETT, Creatinine is slowly improving. (2) Hyperkalemia ICD Codes: E87.5 - Hyperkalemia (3) CKD (chronic kidney disease) ICD Codes: N18.9 - Chronic kidney disease, unspecified (Elder Monterroso MD) Chandrika Cowan Aug 01, 2017 14:13 Elder Monterroso MD Aug 01, 2017 23:11
[2017-08-01 14:34] LABS: HEMOGLOBIN A1C 6.7 % (4.3-6.0)
--- NOTE | 2017-08-01 14:55 | HHI.PR ---
Subjective Remarks overall feeling better but easily gets short of breath leg swelling improved up and ambulating HR in th 70s reviewed telemetry-overnight- occasionally dips in the 30s now SR rate- 60s Objective Vitals Vital Signs Date Time Temp Pulse Resp B/P (MAP) Pulse Ox O2 Delivery O2 Flow Rate FiO2 08/01/17 09:07 90 Nasal Cannula 1.00 08/01/17 08:35 97.6 66 18 185/81 (115) 90 08/01/17 07:15 90 Nasal Cannula 1.00 08/01/17 04:01 97.8 67 16 148/58 (88) 93 08/01/17 03:58 Nasal Cannula 1.00 08/01/17 03:14 56 08/01/17 00:00 86 08/01/17 00:00 Nasal Cannula 1.00 08/01/17 00:00 97.9 67 17 147/68 (94) 93 07/31/17 20:00 97.6 77 18 158/79 (105) 92 07/31/17 20:00 86 07/31/17 18:40 95 Nasal Cannula 1.00 07/31/17 16:24 94 Nasal Cannula 1.00 07/31/17 16:08 97.9 80 18 148/65 (92) 94 07/31/17 16:00 83 I/O 07/31/17 07/31/17 07/31/17 08/01/17 08/01/17 08/01/17 07:00 15:00 23:00 07:00 15:00 23:00 Intake Total 120 ml 845 ml 720 ml 480 ml Output Total 400 ml 525 ml Balance -280 ml 845 ml 720 ml -45 ml Intake Oral 120 ml 720 ml 480 ml IV Total 845 ml Output Urine Total 400 ml 525 ml # Voids 3 # Bowel Movements 0 0 0 Result Diagram: 07/31/17 0540 08/01/17 0633 Imaging Last Impressions Renal Ultrasound 07/30/17 0000 Signed Impressions: Service Date/Time: Sunday, July 30, 2017 21:40 - CONCLUSION: 1. Mildly increased echogenicity of the renal cortex suggesting underlying medical renal disease. 2. 5.5 x 5.4 cm simple cyst on the left. Ean Barlow MD Chest X-Ray 07/29/17 1810 Signed Impressions: Service Date/Time: Saturday, July 29, 2017 18:20 - CONCLUSION: 1. Mild cardiomegaly and positive fluid balance. 2. Trace bilateral pleural effusions and associated airspace disease at the lung bases, presumably atelectasis. Sabino Fuentes MD Objective Remarks awake and alert, no acute distress, on 02 NC anicteric decreased breath sounds bases, no rales regular rhythm abdomen soft trace pretibial edema neuro exam- non focal A/P Assessment and Plan 77 years old Hypertensive urgency presenting with acute CHF- SOB/leg swelling on admission with BNP 888 CAD history/hyperlipidemia home meds -was on Lopressor 50 mg bid, Lisinopril 10 m g daiy, Lasix 20 mg daily- both held due to BENNETT simvastatin 20 mg , fenofibrate 160 mg daily . ASA Clinically feels better after diuresis since admission- Lasix held with acute increase in creatinine 07/30- buts till with some SOB- could be baseline- also woith COPD- smoker until the day of admission Lopressor was changed to Coreg on admission- overnight- bradycardia with some rate in the 30s- will DC BB and monitor Echo - good EF EKG with no acute changes hold ROBERTO with BENNETT and tendency for hyperkalemia add CCB for additional BP control consider restarting Furosemid once creatinine stabilizes Cardiology consulted for recommendation BENNETT on top of chronic- creatinine trending down Hyponatremia- improved hold diuretics, hold ROBERTO Renal ultrasound- chronic medical disease- no obstruction I and O q shift Renal service ff- . DC IVF and monitor BMP HYperkalemia- resolved S/P Kayexalate 07/29 COPD- no wheezes continue on duonebs q 6- per patient on this scheduled Duo nebs prn when necessary check walk test prior to DC. check PFTs Diabetes mellitus- BS on lab 547 chekc a1C. repeated a stat BS now 187. continue to monitor Siding scale insulin Monitor blood glucose - as OP was on Glipiziede 2.5 mg bid- hold - his metformin was DC per patient due to diabetes teaching and reinforcement Electrolytes: Monitor and replete when necessary Heparin Marycruz Acevedo MD Aug 01, 2017 14:55
--- NOTE | 2017-08-01 15:23 | MB ---
cc: NICOLE BLAND M.D. DATE OF CONSULTATION: 08/01/2017. REASON FOR CONSULTATION: Congestive heart failure. HISTORY OF PRESENT ILLNESS: The patient is a 77-year-old white male, previously followed in our office by Dr. Jasson Guzman, with a history of coronary artery disease, COPD, diabetes, hypertension, tobacco abuse who presented to the hospital with a three to four day history of increasing shortness of breath, paroxysmal nocturnal dyspnea, orthopnea. He also has noted minimal to mild pedal edema. He denies chest pain, palpitations, dizziness, syncope, near-syncope, flu symptoms. He reports compliance with his medications and a af-[id number]-[id number] diet. PAST MEDICAL HISTORY: 1. Coronary artery disease status post bypass surgery 06/15/2012. 2. COPD. 3. Diabetes. 4. Hypertension. CARDIAC MEDICATIONS AT HOME: 1. Furosemide 20 milligrams daily. 2. Atorvastatin 40 milligrams daily. 3. Aspirin 81 milligrams daily. 4. Metoprolol tartrate 50 milligrams daily. 5. Lisinopril 5 milligrams daily. ALLERGIES: NO KNOWN DRUG ALLERGIES. FAMILY HISTORY: Noncontributory. SOCIAL HISTORY: The patient smokes about a pack of cigarettes per day. He denies alcohol abuse. REVIEW OF SYSTEMS: Review of systems as in the history of present illness otherwise negative or noncontributory. He also denies headache, abdominal pain, melena, dyspepsia, bright red blood per rectum. PHYSICAL EXAMINATION: VITAL SIGNS: On physical examination, his blood pressure is 185/81 with a pulse of 66, respirations 18. GENERAL: In general, he is a well-developed, well-nourished white male in no acute distress. HEAD, EYES, EARS, NOSE, THROAT: On HEENT examination, jugular venous pressure is normal. Carotid pulses are 2+ bilaterally and without bruits. CHEST: Examination of the chest reveals diminished breath sounds at the bases. CARDIAC: On cardiac examination, he has a regular rhythm and rate without S3 or S4. There is a grade 1/6 systolic murmur heard at the base of the heart. ABDOMEN: On abdominal examination, he has a soft, nontender abdomen. Bowel sounds are present. There is no definite hepatosplenomegaly. EXTREMITIES: No clubbing or cyanosis. There is trace pretibial edema. IMAGING STUDIES: Chest x-ray shows trace bilateral pleural effusions with diffusely increased interstitial markings. LABORATORY DATA: WBCs 6.6, hemoglobin 10.5, platelets 256,000. Potassium 3.8, BUN 28, creatinine 1.98. INR 1.0. EKGS: EKG from 07/30/17 at 7:48 a.m. shows normal sinus rhythm with occasional PVC, poor R wave progression. IMPRESSION: Possible mild congestive heart failure in this 77-year-old white male with a history of coronary artery disease status post bypass surgery in 2012, history of COPD, diabetes, hypertension. The precipitating factor for his congestive heart failure is not entirely clear. There is no evidence for acute coronary syndrome. His ejection fraction by echocardiogram this admission is 55% to 60%. Cardiac enzymes are negative for myocardial infarction. The increase in renal indices (up to 3.82 creatinine) may have contributed to fluid retention. The patient reports compliance with his medications and a ak-glinr-gmxr diet. No arrhythmias have been seen on monitoring so far. RECOMMENDATIONS: 1. Agree with carvedilol 25 milligrams p.o. q.12 h; no ROBERTO inhibitor for now with his renal insufficiency. 2. Consider changing his intravenous furosemide to oral administration. 3. Continue daily aspirin. 4. Continue statin therapy. MD KIARA Farmer/JUSTINO /12:07 PM /2:55 PM SENAIT
[2017-08-01] MEDS: amLODIPine BESYLATE 5 MG TAB PO SCH (16:55)
[2017-08-01] MEDS ORDERED: METOPROLOL TARTRATE 25 MG TAB PO SCH (21:00)
[2017-08-02] VITALS (11 sets, daily range): BP systolic 165–181; BP diastolic 74–77; PULSE 58–80; RESP 16–22; TEMP 97.4–97.9; O2SAT 91–100
[2017-08-02] MEDS: HEPARIN SODIUM - SQ 10,000 UNITS/ML VIAL SQ SCH ×4 (02:12→23:19)
[2017-08-02] MEDS: RESP: ALBUTEROL 2.5 MG/IPRATROPIUM 0.5 MG NEB (SCH) NEB ×4 (04:17→20:05)
[2017-08-02] MEDS: INSULIN ASPART SUPPLEMENTAL SCALE SQ SCH ×4 (08:00→22:34)
[2017-08-02] MEDS: SODIUM CHLORIDE 0.9% FLUSH 10 ML FLUSH IV FLUSH SCH ×2 (08:38→20:15)
[2017-08-02] MEDS: amLODIPine BESYLATE 5 MG TAB PO SCH (08:38)
[2017-08-02] MEDS: TAMSULOSIN HCL 0.4 MG CAP PO SCH (08:39)
[2017-08-02] MEDS: PRAVASTATIN SOD 10 MG TAB PO SCH (08:39)
[2017-08-02] MEDS: CARVEDILOL 12.5 MG TAB PO SCH ×2 (08:39→20:15)
[2017-08-02] MEDS: ASPIRIN 81 MG CHEW TAB PO SCH (08:40)
[2017-08-02] MEDS: MULTIVITAMIN TAB PO SCH (08:40)
[2017-08-02 10:45] LABS: BICARBONATE 23.9 MEQ/L (21.0-32.0); CALCIUM 8.1 MG/DL (8.5-10.1); CREATININE 1.69 MG/DL (0.60-1.30)
--- NOTE | 2017-08-02 11:49 | PD.CARD.PN ---
Subjective Subjective Remarks Denies dyspnea, CP, dizziness, palpitations. Ambulating without difficulty. Objective Medications Item Value Date Time Carvedilol 12.5 mg 08/01/17 2100 (Coreg) Q12HR/PO 08/02/17 0839 Amlodipine 5 mg 08/01/17 1515 Besylate DAILY/PO 08/02/17 0838 (Norvasc) Aspirin 81 mg 07/31/17 0900 (Aspirin Chew) DAILY/PO 08/02/17 0840 Pravastatin Sodium 10 mg 07/31/17 0900 (Pravachol) DAILY/PO 08/02/17 0839 Current Medications Medications (Trade) Dose Ordered Sig/Chi Route Start Time Stop Time Status Last Admin (Nitrostat Sl) 0.4 mg Q5M PRN SL 07/29/17 23:30 (NS Flush) 2 ml UNSCH PRN IV FLUSH 07/30/17 00:45 (NS Flush) 2 ml BID IV FLUSH 07/30/17 09:00 08/02/17 08:38 (Tylenol) 650 mg Q4H PRN PO 07/30/17 00:45 (Zofran Inj) 4 mg Q6H PRN IVP 07/30/17 00:45 (Heparin Inj) 5,000 units Q8H SQ 07/30/17 01:00 08/02/17 08:41 (Lasix Inj) 40 mg BID@,18 IV PUSH 07/30/17 09:00 Future Hold 07/30/17 09:40 (Duoneb Neb) 1 ampule Q4HR NEB PRN NEB 07/30/17 00:45 07/30/17 06:17 (D50w (Vial) Inj) 50 ml UNSCH PRN IV PUSH 07/30/17 00:45 (Glucagon Inj) 1 mg UNSCH PRN OTHER 07/30/17 00:45 (NovoLOG SUPPLEMENTAL SCALE) 1 ACHS SLIDING SCALE SQ 07/30/17 08:00 08/01/17 21:12 (Aspirin Chew) 81 mg DAILY PO 07/31/17 09:00 08/02/17 08:40 (Pravachol) 10 mg DAILY PO 07/31/17 09:00 08/02/17 08:39 (Flomax) 0.4 mg DAILY PO 07/31/17 09:00 08/02/17 08:39 (Theragran) 1 tab DAILY PO 07/31/17 09:00 08/02/17 08:40 (Norvasc) 5 mg DAILY PO 08/01/17 15:15 08/02/17 08:38 (Duoneb Neb) 1 ampule Q6HR NEB NEB 08/01/17 16:00 08/02/17 07:53 (Coreg) 12.5 mg Q12HR PO 08/01/17 21:00 08/02/17 08:39 Vital Signs / I&O Vital Signs Date Time Temp Pulse Resp B/P (MAP) Pulse Ox O2 Delivery O2 Flow Rate FiO2 08/02/17 08:00 63 08/02/17 08:00 97.6 80 22 176/77 (110) 91 08/02/17 08:00 Room Air 1.00 08/02/17 05:24 97.8 74 16 165/74 (104) 91 08/02/17 04:00 79 08/02/17 00:00 67 08/01/17 23:25 98.0 74 16 136/65 (88) 91 08/01/17 21:07 97.6 70 18 164/84 (110) 93 08/01/17 20:00 Room Air 08/01/17 20:00 81 08/01/17 18:26 95 08/01/17 16:00 97.6 88 20 128/79 (95) 98 08/01/17 16:00 67 08/01/17 12:00 97.7 60 20 166/71 (102) 94 08/01/17 12:00 52 I/O 08/01/17 08/01/17 08/01/17 08/02/17 08/02/17 08/02/17 07:00 15:00 23:00 07:00 15:00 23:00 Intake Total 480 ml 480 ml 0 ml Output Total 525 ml 800 ml Balance -45 ml 480 ml -800 ml Intake Oral 480 ml 480 ml 0 ml Output Urine Total 525 ml 800 ml # Voids 6 # Bowel Movements 0 1 0 Physical Exam GENERAL: Well developed, well nourished. No acute distress. HEENT: Jugular venous pressure is normal. CHEST: Lungs clear to auscultation bilaterally. Unlabored respiratory effort. CARDIAC: Regular rate and rhythm without S3, S4. I/ SARAH base. Normal S2. ABDOMEN: Soft, nontender, no hepatosplenomegaly. Bowel sounds present. EXTREMITIES: No clubbing, cyanosis, or edema. Laboratory Laboratory Tests Test 08/02/17 10:05 Blood Urea Nitrogen 24 MG/DL Creatinine 1.69 MG/DL Random Glucose 222 MG/DL Calcium Level 8.1 MG/DL Sodium Level 142 MEQ/L Potassium Level 3.6 MEQ/L Chloride Level 110 MEQ/L Carbon Dioxide Level 23.9 MEQ/L Anion Gap 8 MEQ/L Estimat Glomerular Filtration Rate 40 ML/MIN Assessment and Plan Problem List: (1) Congestive heart failure (CHF) ICD Codes: I50.9 - Heart failure, unspecified Plan: Doing well. Now asymptomatic after good diuresis since admission. Precipitating factor for CHF unclear. No evidence for myocardial ischemia/ infarct, arrhythmias. EF normal by echo with no major valvular abnormalities. Acute renal insufficiency may have contributed to the fluid retention. OK to discharge home from cardiac standpoint. 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 (2) CAD (coronary artery disease) ICD Codes: I25.10 - Atherosclerotic heart disease of [place] coronary artery without angina pectoris Status: Chronic Plan: Stable. No recent angina. No evidence for ACS. (3) Hypertension ICD Codes: I10 - Essential (primary) hypertension Status: Chronic Plan: Suboptimal BP control. Rec increase amlodipine and carvedilol dosing. Code Status full code Discussed Condition With patient and Problem Qualifiers (1) Congestive heart failure (CHF): Qualified Codes: I50.9 - Heart failure, unspecified (2) CAD (coronary artery disease): Qualified Codes: I25.10 - Atherosclerotic heart disease of [place] coronary artery without angina pectoris (3) Hypertension: Qualified Codes: I10 - Essential (primary) hypertension Maximo Ramirez MD Aug 02, 2017 11:49
--- NOTE | 2017-08-02 12:27 | HHI.PR ---
Subjective Remarks feeling better BP systolic in the 160-170 no bradycardia Objective Vitals Vital Signs Date Time Temp Pulse Resp B/P (MAP) Pulse Ox O2 Delivery O2 Flow Rate FiO2 08/02/17 08:00 63 08/02/17 08:00 97.6 80 22 176/77 (110) 91 08/02/17 08:00 Room Air 1.00 08/02/17 05:24 97.8 74 16 165/74 (104) 91 08/02/17 04:00 79 08/02/17 00:00 67 08/01/17 23:25 98.0 74 16 136/65 (88) 91 08/01/17 21:07 97.6 70 18 164/84 (110) 93 08/01/17 20:00 Room Air 08/01/17 20:00 81 08/01/17 18:26 95 08/01/17 16:00 97.6 88 20 128/79 (95) 98 08/01/17 16:00 67 I/O 08/01/17 08/01/17 08/01/17 08/02/17 08/02/17 08/02/17 07:00 15:00 23:00 07:00 15:00 23:00 Intake Total 480 ml 480 ml 0 ml Output Total 525 ml 800 ml Balance -45 ml 480 ml -800 ml Intake Oral 480 ml 480 ml 0 ml Output Urine Total 525 ml 800 ml # Voids 6 # Bowel Movements 0 1 0 Result Diagram: 07/31/17 0540 08/02/17 1005 Imaging Last Impressions Renal Ultrasound 07/30/17 0000 Signed Impressions: Service Date/Time: Sunday, July 30, 2017 21:40 - CONCLUSION: 1. Mildly increased echogenicity of the renal cortex suggesting underlying medical renal disease. 2. 5.5 x 5.4 cm simple cyst on the left. Ean Barlow MD Chest X-Ray 07/29/17 1810 Signed Impressions: Service Date/Time: Saturday, July 29, 2017 18:20 - CONCLUSION: 1. Mild cardiomegaly and positive fluid balance. 2. Trace bilateral pleural effusions and associated airspace disease at the lung bases, presumably atelectasis. Sabino Fuentes MD Objective Remarks awake and alert, no acute distress, on 02 NC anicteric decreased breath sounds bases, no rales regular rhythm abdomen soft , no edema neuro exam- non focal A/P Assessment and Plan 77 years old Hypertensive urgency presenting with acute CHF- SOB/leg swelling on admission with BNP 888 hyperlipidemia/CAD home meds -was on Lopressor 50 mg bid, Lisinopril 10 m g daiy, Lasix 20 mg daily- will hold both due to BENNETT simvastatin 20 mg , fenofibrate 160 mg daily Clinically feels better after diuresis since admission- but Lasix held with acute increase in creatinine 07/30 01 NC Echo - good EF, no valvular disease EKG with no acute changes hold ROBERTO with BENNETT and tendency for hyperkalemia Coreg 25 mg po bid. ASA daily Amlodpine up to 10 mg daily consider restarting diuretic with caution BENNETT on top of chronic- creatinine trending down Hyponatremia- improved hold diuretics, hold ROBERTO Renal ultrasound- chronic medical disease- no obstruction I and O q shift HYperkalemia- resolved S/P Kayexalate 07/29 COPD- no wheezes continue on duonebs q 6- per patient on this scheduled Duo nebs prn when necessary check walk test prior to DC Diabetes mellitus- A1C - 6.7 Siding scale insulin Monitor blood glucose - as OP was on Glipiziede 2.5 mg bid- hold - his metformin was DC per patient due to KI start Insulin once a day 70/30 daily diabetes teaching and reinforcement- insulin teaching 4. 5. Electrolytes: Monitor and replete when necessary Heparin Marycruz Acevedo MD Aug 02, 2017 12:27
[2017-08-02] MEDS ORDERED: POTASSIUM CHLORIDE 10 MEQ CONTROLLED RELEASE TAB PO ONE (12:45)
[2017-08-02] MEDS: INSULIN HUMAN NPH/R 70/30 1,000 UNITS/10 ML VIAL SQ SCH (12:51)
--- NOTE | 2017-08-02 17:51 | HHI.NPPN ---
Subjective General Problems: Anemia Renal Failure: Chronic, Acute, Stage III History of Present Illness 77-year-old male with a past medical history significant for coronary artery disease, diabetes mellitus, COPD, hypertension, hyperlipidemia and CHF. Presents to ER for evaluation of shortness of breath. The patient reports that for the past 3 days he has had increasing shortness of breath, lower extremity bilateral edema, and orthopnea. Additional Remarks No acute complaints Review of Systems General Constitutional: Fatigue Respiratory Lungs: SOB Cardiovascular Cardiac: Edema, PRICE Gastrointestinal GI Remarks No abdominal pain Objective Data Data Vital Signs Date Time Temp Pulse Resp B/P (MAP) Pulse Ox O2 Delivery O2 Flow Rate FiO2 08/02/17 16:00 97.6 75 20 172/77 (108) 94 08/02/17 12:00 97.4 64 20 166/74 (104) 94 08/02/17 12:00 72 08/02/17 08:00 63 08/02/17 08:00 97.6 80 22 176/77 (110) 91 08/02/17 08:00 Room Air 1.00 08/02/17 05:24 97.8 74 16 165/74 (104) 91 08/02/17 04:00 79 08/02/17 00:00 67 08/01/17 23:25 98.0 74 16 136/65 (88) 91 08/01/17 21:07 97.6 70 18 164/84 (110) 93 08/01/17 20:00 Room Air 08/01/17 20:00 81 08/01/17 18:26 95 -: 07/31/17 0540 08/02/17 1005 Physical Exam General Appearance: No Acute Distress, Comfortable Eyes Eye Exam: Pupils Equal Throat Throat Exam: Oral Mucosa [place] & Moist Pulmonary Resp Exam: Breath Sounds Equal, No Distress, Decreased Bases Cardiology CV Exam: Regular, Normal Sinus Rhythm Gastrointestinal/Abdomen GI Exam: Soft, Non-Tender, Bowel Sounds Present Integumentary Skin Exam: Warm, Dry Extremeties Extremities Exam: Trace Edema Neurologic Neuro Exam: Alert, Awake, Oriented Psychiatric Psych Exam: Appropriate Responses Assessment/Plan Assessment Summary: BENNETT/Acute Renal Failure, CKD Stage III Problem List: (1) BENNETT (acute kidney injury) ICD Codes: N17.9 - Acute kidney failure, unspecified Plan: Patient has chronic kidney disease and develop BENNETT. 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 His Creatinine was 1.7 in December 2016 Proteinurea noted Renal US with mildly increased echogenicity of the renal cortex suggesting underlying medical renal disease and also 5.5 x 5.4 cm simple cyst on the left. Plan Creatinine improved to previous levels - 1.69 now. Will restart PO lasix 20mg PO daily (home lasix dose). If stable in AM, OK for d/c from renal standpoint. (2) Hyperkalemia ICD Codes: E87.5 - Hyperkalemia (3) CKD (chronic kidney disease) ICD Codes: N18.9 - Chronic kidney disease, unspecified Ean Pa MD Aug 02, 2017 17:50
[2017-08-02] MEDS: FUROSEMIDE 20 MG TAB PO SCH (18:04)
[2017-08-02] MEDS ORDERED: POTASSIUM CHLORIDE 20 MEQ CONTROLLED RELEASE TAB PO ONE (23:00)
[2017-08-03] VITALS (11 sets, daily range): BP systolic 139–176; BP diastolic 65–79; PULSE 37–82; RESP 16–20; TEMP 97.4–99.4; O2SAT 91–97
[2017-08-03] MEDS: RESP: ALBUTEROL 2.5 MG/IPRATROPIUM 0.5 MG NEB (SCH) NEB ×4 (03:11→20:08)
[2017-08-03 09:04] LABS: CALCIUM 8.9 MG/DL (8.5-10.1); CREATININE 1.83 MG/DL (0.60-1.30); MAGNESIUM 1.7 MG/DL (1.5-2.5)
[2017-08-03] MEDS: TAMSULOSIN HCL 0.4 MG CAP PO SCH (09:22)
[2017-08-03] MEDS: HEPARIN SODIUM - SQ 10,000 UNITS/ML VIAL SQ SCH ×2 (09:22→16:19)
[2017-08-03] MEDS: MULTIVITAMIN TAB PO SCH (09:22)
[2017-08-03] MEDS: SODIUM CHLORIDE 0.9% FLUSH 10 ML FLUSH IV FLUSH SCH ×2 (09:22→21:16)
[2017-08-03] MEDS: FUROSEMIDE 20 MG TAB PO SCH (09:23)
[2017-08-03] MEDS: ASPIRIN 81 MG CHEW TAB PO SCH (09:23)
[2017-08-03] MEDS: INSULIN HUMAN NPH/R 70/30 1,000 UNITS/10 ML VIAL SQ SCH (09:24)
[2017-08-03] MEDS: PRAVASTATIN SOD 10 MG TAB PO SCH (09:24)
[2017-08-03] MEDS: INSULIN ASPART SUPPLEMENTAL SCALE SQ SCH ×4 (09:24→21:00)
[2017-08-03] MEDS: CARVEDILOL 12.5 MG TAB PO SCH ×2 (09:26→21:15)
--- NOTE | 2017-08-03 12:06 | PD.CARD.PN ---
Subjective Subjective Remarks Denies dyspnea, CP, dizziness, palpitations. Ambulating without difficulty. Objective Medications Item Value Date Time Amlodipine 10 mg 08/03/17899 Besylate DAILY/PO 08/03/17924 (Norvasc) Carvedilol 25 mg 08/02/17 2100 (Coreg) Q12HR/PO 08/03/17925 Furosemide 20 mg 08/02/17 174 (Lasix) DAILY/PO 08/03/17922 Aspirin 81 mg 07/31/17899 (Aspirin Chew) DAILY/PO 08/03/17922 Pravastatin Sodium 10 mg 07/31/17899 (Pravachol) DAILY/PO 08/03/17923 Current Medications Medications (Trade) Dose Ordered Sig/Chi Route Start Time Stop Time Status Last Admin (Nitrostat Sl) 0.4 mg Q5M PRN SL 07/29/17 23:30 (NS Flush) 2 ml UNSCH PRN IV FLUSH 07/30/17 00:45 (NS Flush) 2 ml BID IV FLUSH 07/30/17 09:00 08/03/17 09:22 (Tylenol) 650 mg Q4H PRN PO 07/30/17 00:45 (Zofran Inj) 4 mg Q6H PRN IVP 07/30/17 00:45 (Heparin Inj) 5,000 units Q8H SQ 07/30/17 01:00 08/03/17 09:22 (Lasix Inj) 40 mg BID@,18 IV PUSH 07/30/17 09:00 Future Hold 07/30/17 09:40 (Duoneb Neb) 1 ampule Q4HR NEB PRN NEB 07/30/17 00:45 07/30/17 06:17 (D50w (Vial) Inj) 50 ml UNSCH PRN IV PUSH 07/30/17 00:45 (Glucagon Inj) 1 mg UNSCH PRN OTHER 07/30/17 00:45 (NovoLOG SUPPLEMENTAL SCALE) 1 ACHS SLIDING SCALE SQ 07/30/17 08:00 08/03/17 11:52 (Aspirin Chew) 81 mg DAILY PO 07/31/17 09:00 08/03/17 09:23 (Pravachol) 10 mg DAILY PO 07/31/17 09:00 2/25/18 09:24 (Flomax) 0.4 mg DAILY PO 07/31/17 09:00 08/03/17 09:22 (Theragran) 1 tab DAILY PO 07/31/17 09:00 08/03/17 09:22 (Duoneb Neb) 1 ampule Q6HR NEB NEB 08/01/17 16:00 08/03/17 09:40 (Norvasc) 10 mg DAILY PO 08/03/17 09:00 08/03/17 09:25 (NovoLIN 70/30 INJ) 8 units DAILY@08 SQ 08/02/17 12:45 08/03/17 09:24 (Coreg) 25 mg Q12HR PO 08/02/17 21:00 08/03/17 09:26 (Lasix) 20 mg DAILY PO 08/02/17 17:45 08/03/17 09:23 Vital Signs / I&O Vital Signs Date Time Temp Pulse Resp B/P (MAP) Pulse Ox O2 Delivery O2 Flow Rate FiO2 08/03/17 09:44 94 21 08/03/17 08:00 Room Air 1.00 21 08/03/17 08:00 98.1 67 16 157/70 (99) 94 08/03/17 08:00 82 08/03/17 04:00 Room Air 08/03/17 04:00 98.1 58 18 139/65 (89) 91 08/03/17 03:48 50 08/03/17 00:00 Room Air 08/03/17 00:00 97.6 67 19 176/79 (111) 92 08/02/17 23:48 58 08/02/17 21:30 64 08/02/17 20:12 97.9 62 20 181/77 (111) 100 08/02/17 20:07 98 21 08/02/17 20:00 Room Air 08/02/17 19:49 70 08/02/17 16:00 58 08/02/17 16:00 97.6 75 20 172/77 (108) 94 I/O 08/02/17 08/02/17 08/02/17 08/03/17 08/03/17 08/03/17 07:00 15:00 23:00 07:00 15:00 23:00 Intake Total 0 ml 720 ml 900 ml Output Total 800 ml 875 ml Balance -800 ml 720 ml 25 ml Intake Oral 0 ml 720 ml 900 ml Output Urine Total 800 ml 875 ml # Voids 6 # Bowel Movements 0 Physical Exam GENERAL: Well developed, well nourished. No acute distress. HEENT: Jugular venous pressure is normal. CHEST: Lungs clear to auscultation bilaterally. Unlabored respiratory effort. CARDIAC: Regular rate and rhythm without S3, S4. I/ SARAH base. Normal S2. ABDOMEN: Soft, nontender, no hepatosplenomegaly. Bowel sounds present. EXTREMITIES: No clubbing, cyanosis, or edema. Laboratory Laboratory Tests Test 08/03/17 07:45 Blood Urea Nitrogen 26 MG/DL Creatinine 1.83 MG/DL Random Glucose 135 MG/DL Calcium Level 8.9 MG/DL Magnesium Level 1.7 MG/DL Sodium Level 140 MEQ/L Potassium Level 3.8 MEQ/L Chloride Level 108 MEQ/L Carbon Dioxide Level 24.0 MEQ/L Anion Gap 8 MEQ/L Estimat Glomerular Filtration Rate 36 ML/MIN Assessment and Plan Problem List: (1) Wide QRS ventricular tachycardia ICD Codes: I47.2 - Ventricular tachycardia Status: Acute Plan: Patient with a couple salvoes wide complex tachycardia, possibly aberrantly conducted supraventricular arrhythmia, hard to rule out VT. K, Mg levels OK. Patient asymptomatic. EF reportedly normal by echo. REC continue beta fernando no change in therapy unless he develops sustained episodes or symptoms OK to discharge from cardiac standpoint (2) Congestive heart failure (CHF) ICD Codes: I50.9 - Heart failure, unspecified Plan: Doing well. Asymptomatic after good diuresis since admission. Precipitating factor for CHF unclear. No evidence for myocardial ischemia/ infarct, arrhythmias. EF normal by echo with no major valvular abnormalities. Acute renal insufficiency may have contributed to the fluid retention. Would optimize BP control mcc. (3) CAD (coronary artery disease) ICD Codes: I25.10 - Atherosclerotic heart disease of [place] coronary artery without angina pectoris Status: Chronic Plan: Stable. No recent angina. No evidence for ACS. (4) Hypertension ICD Codes: I10 - Essential (primary) hypertension Status: Chronic Plan: Fluctuating BP's mostly hypertensive. Rec consider adding clonidine. Code Status full code Discussed Condition With patient and his Problem Qualifiers (1) Congestive heart failure (CHF): Qualified Codes: I50.9 - Heart failure, unspecified (2) CAD (coronary artery disease): Qualified Codes: I25.10 - Atherosclerotic heart disease of [place] coronary artery without angina pectoris (3) Hypertension: Qualified Codes: I10 - Essential (primary) hypertension Maximo Ramirez MD Aug 03, 2017 12:06
--- NOTE | 2017-08-03 15:07 | HHI.PR ---
Subjective Remarks feeling better voiding up and ambulating telemetry- sinus with occasional PVCs Objective Vitals Vital Signs Date Time Temp Pulse Resp B/P (MAP) Pulse Ox O2 Delivery O2 Flow Rate FiO2 08/03/17 12:00 64 08/03/17 12:00 97.4 58 18 151/69 (96) 93 08/03/17 09:44 94 21 08/03/17 08:00 Room Air 1.00 21 08/03/17 08:00 98.1 67 16 157/70 (99) 94 08/03/17 08:00 82 08/03/17 04:00 Room Air 08/03/17 04:00 98.1 58 18 139/65 (89) 91 08/03/17 03:48 50 08/03/17 00:00 Room Air 08/03/17 00:00 97.6 67 19 176/79 (111) 92 08/02/17 23:48 58 08/02/17 21:30 64 08/02/17 20:12 97.9 62 20 181/77 (111) 100 08/02/17 20:07 98 21 08/02/17 20:00 Room Air 08/02/17 19:49 70 08/02/17 16:00 58 08/02/17 16:00 97.6 75 20 172/77 (108) 94 I/O 08/02/17 08/02/17 08/02/17 08/03/17 08/03/17 08/03/17 07:00 15:00 23:00 07:00 15:00 23:00 Intake Total 0 ml 720 ml 900 ml Output Total 800 ml 875 ml Balance -800 ml 720 ml 25 ml Intake Oral 0 ml 720 ml 900 ml Output Urine Total 800 ml 875 ml # Voids 6 # Bowel Movements 0 Result Diagram: 07/31/17 0540 08/03/17 0745 Imaging Last Impressions Renal Ultrasound 07/30/17 0000 Signed Impressions: Service Date/Time: Sunday, July 30, 2017 21:40 - CONCLUSION: 1. Mildly increased echogenicity of the renal cortex suggesting underlying medical renal disease. 2. 5.5 x 5.4 cm simple cyst on the left. Ean Barlow MD Chest X-Ray 07/29/17 1810 Signed Impressions: Service Date/Time: Saturday, July 29, 2017 18:20 - CONCLUSION: 1. Mild cardiomegaly and positive fluid balance. 2. Trace bilateral pleural effusions and associated airspace disease at the lung bases, presumably atelectasis. Sabino Fuentes MD Objective Remarks awake and alert, no acute distress, good sats at room air anicteric decreased breath sounds bases, no rales regular rhythm abdomen soft, no edema neuro exam- non focal A/P Assessment and Plan 77 years old Hypertensive urgency presenting with acute CHF- SOB/leg swelling on admission with BNP 888 hyperlipidemia/CAD 02 NC prn - good sata at room air Echo - good EF, no valvular disease EKG with no acute changes hold ROBERTO with BENNETT and tendency for hyperkalemia Coreg 25 mg po bid. ASA daily Amlodpine up to 10 mg daily BENNETT on top of chronic- creatinine- stabilizing Hyponatremia- improved Lasix 20 mg daily Renal ultrasound- chronic medical disease- no obstruction HYperkalemia- resolved S/P Kayexalate 07/29 COPD- no wheezes continue on duonebs q 6- per patient on this scheduled Duo nebs prn when necessary check walk test prior to DC Diabetes mellitus- A1C - 6.7 Siding scale insulin Monitor blood glucose - as OP was on Glipiziede 2.5 mg bid- will DC - his metformin was DC per patient due to KI start Insulin once a day 70/30 bid - good readings diabetes teaching and reinforcement- insulin teaching patient will need diabetes education Heparin-paitne up and ambulating will need [facility] arrangement, diabetes education Marycruz Acevedo MD Aug 03, 2017 15:07
--- NOTE | 2017-08-03 15:18 | HHI.FF ---
Face to Face Verification Diagnosis: (1) Congestive heart failure (CHF) (2) CKD (chronic kidney disease) (3) Hypertension (4) COPD (chronic obstructive pulmonary disease) Home Health Nursing Order: Medical education Signs/symptoms of disease process Diabetic education CHF education Nursing assessment with vital signs I have seen patient Abhijit Holloway on 08/03/17. My clinical findings support the need for the requested home health care services because: Patient has SOB Deconditioned w/ increased weakness Need for psychosocial assistance Injectable med education/admin I certify that my clinical findings support that this patient is homebound because: Hx COPD- exertion dyspnea/weakness Poor cardiac reserve Marycruz Acevedo MD Aug 03, 2017 15:18
--- NOTE | 2017-08-03 16:27 | HHI.NPPN ---
Subjective General Problems: Anemia Renal Failure: Chronic, Acute, Stage III History of Present Illness 77-year-old male with a past medical history significant for coronary artery disease, diabetes mellitus, COPD, hypertension, hyperlipidemia and CHF. Presents to ER for evaluation of shortness of breath. The patient reports that for the past 3 days he has had increasing shortness of breath, lower extremity bilateral edema, and orthopnea. Additional Remarks No acute complaints Review of Systems General Constitutional: Fatigue Respiratory Lungs: SOB Cardiovascular Cardiac: Edema, PRICE Gastrointestinal GI Remarks No abdominal pain Objective Data Data Vital Signs Date Time Temp Pulse Resp B/P (MAP) Pulse Ox O2 Delivery O2 Flow Rate FiO2 08/03/17 12:00 64 08/03/17 12:00 97.4 58 18 151/69 (96) 93 08/03/17 09:44 94 21 08/03/17 08:00 Room Air 1.00 21 08/03/17 08:00 98.1 67 16 157/70 (99) 94 08/03/17 08:00 82 08/03/17 04:00 Room Air 08/03/17 04:00 98.1 58 18 139/65 (89) 91 08/03/17 03:48 50 08/03/17 00:00 Room Air 08/03/17 00:00 97.6 67 19 176/79 (111) 92 08/02/17 23:48 58 08/02/17 21:30 64 08/02/17 20:12 97.9 62 20 181/77 (111) 100 08/02/17 20:07 98 21 08/02/17 20:00 Room Air 08/02/17 19:49 70 -: 07/31/17 0540 08/03/17 0745 Physical Exam General Appearance: No Acute Distress, Comfortable Eyes Eye Exam: Pupils Equal Throat Throat Exam: Oral Mucosa [place] & Moist Pulmonary Resp Exam: Breath Sounds Equal, No Distress, Decreased Bases Cardiology CV Exam: Regular, Normal Sinus Rhythm Gastrointestinal/Abdomen GI Exam: Soft, Non-Tender, Bowel Sounds Present Integumentary Skin Exam: Warm, Dry Extremeties Extremities Exam: Trace Edema Neurologic Neuro Exam: Alert, Awake, Oriented Psychiatric Psych Exam: Appropriate Responses Assessment/Plan Assessment Summary: BENNETT/Acute Renal Failure, CKD Stage III Problem List: (1) BENNETT (acute kidney injury) ICD Codes: N17.9 - Acute kidney failure, unspecified Plan: Patient has chronic kidney disease and develop BENNETT. 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 His Creatinine was 1.7 in December 2016 Proteinuria noted Renal US with mildly increased echogenicity of the renal cortex suggesting underlying medical renal disease and also 5.5 x 5.4 cm simple cyst on the left. Plan Creatinine near previous levels: 1.9 -> 1.6 -> 1.8 now. Yeterday restarted PO lasix 20mg PO daily (home lasix dose). If stable in AM, OK for d/c from renal standpoint. (2) Hyperkalemia ICD Codes: E87.5 - Hyperkalemia (3) CKD (chronic kidney disease) ICD Codes: N18.9 - Chronic kidney disease, unspecified Ean Pa MD Aug 03, 2017 16:27
[2017-08-03] MEDS: INSULIN ASPAR PROT 70/30 1,000 UNITS/10 ML VIAL SQ SCH (16:46)
[2017-08-03] MEDS ORDERED: POTASSIUM CHLORIDE 20 MEQ CONTROLLED RELEASE TAB PO ONE (19:30)
[2017-08-03] MEDS ORDERED: MAGNESIUM SULFATE 1 GM PREMIX 100 ML IV ONE (19:30)
[2017-08-04 00:05] VITALS: BP 145/65; PULSE 53; RESP 20; TEMP 97.9; O2SAT 93
[2017-08-04] MEDS: HEPARIN SODIUM - SQ 10,000 UNITS/ML VIAL SQ SCH ×2 (00:12→10:35)
[2017-08-04] MEDS: RESP: ALBUTEROL 2.5 MG/IPRATROPIUM 0.5 MG NEB (SCH) NEB (03:03)
[2017-08-04 04:00] VITALS: BP 144/64; PULSE 64; RESP 19; TEMP 97.3; O2SAT 91
[2017-08-04 07:12] LABS: BICARBONATE 24.9 MEQ/L (21.0-32.0); CALCIUM 8.8 MG/DL (8.5-10.1); CREATININE 1.78 MG/DL (0.60-1.30); MAGNESIUM 2.1 MG/DL (1.5-2.5)
[2017-08-04] MEDS: INSULIN ASPART SUPPLEMENTAL SCALE SQ SCH ×2 (08:00→12:00)
[2017-08-04 08:08] VITALS: BP 149/65; PULSE 72; RESP 17; TEMP 97.4; O2SAT 94
[2017-08-04 08:15] VITALS: PULSE 60
[2017-08-04] MEDS ORDERED: OXYGENDME NAS.CANULA (10:32)
[2017-08-04] MEDS: SODIUM CHLORIDE 0.9% FLUSH 10 ML FLUSH IV FLUSH SCH (10:32)
[2017-08-04] MEDS: INSULIN ASPAR PROT 70/30 1,000 UNITS/10 ML VIAL SQ SCH (10:33)
[2017-08-04] MEDS: ASPIRIN 81 MG CHEW TAB PO SCH (10:33)
[2017-08-04] MEDS: PRAVASTATIN SOD 10 MG TAB PO SCH (10:34)
[2017-08-04] MEDS: CARVEDILOL 12.5 MG TAB PO SCH (10:34)
[2017-08-04] MEDS: FUROSEMIDE 20 MG TAB PO SCH (10:34)
[2017-08-04] MEDS: TAMSULOSIN HCL 0.4 MG CAP PO SCH (10:34)
[2017-08-04] MEDS: MULTIVITAMIN TAB PO SCH (10:35)
[2017-08-04] MEDS ORDERED: AMLO10 PO (10:38)
[2017-08-04] MEDS ORDERED: CARV12.5 PO (10:38)
[2017-08-04] MEDS ORDERED: Albuterol-Ipratropium Neb NEB (10:39)
[2017-08-04] MEDS ORDERED: Budeson-Formot 160-4.5 Mcg Inh INH (10:45)
[2017-08-04] MEDS ORDERED: BUDESONIDE-FORMOTEROL 160/4.5 MCG INHALER INH SCH (10:45)
--- NOTE | 2017-08-04 10:46 | HHI.DS ---
Discharge Summary Admission Date Jul 30, 2017 at 15:02 Discharge Date: Aug 04, 2017 Admitting Diagnosis CHF exacerbation, CP r/o ACS (1) Hyperkalemia ICD Code: E87.5 - Hyperkalemia Diagnosis: Principal (2) Congestive heart failure (CHF) ICD Code: I50.9 - Heart failure, unspecified Diagnosis: Principal (3) BENNETT (acute kidney injury) ICD Code: N17.9 - Acute kidney failure, unspecified Diagnosis: Principal (4) CKD (chronic kidney disease) ICD Code: N18.9 - Chronic kidney disease, unspecified Diagnosis: Secondary (5) DM Diagnosis: Secondary Procedures none Brief History - From Admission 77-year-old male with a past medical history significant for coronary artery disease, diabetes mellitus, COPD, hypertension, hyperlipidemia and CHF (no recent echo for comparison) presents to the emergency department for evaluation of shortness of breath. The patient reports that for the past 3 days he has had increasing shortness of breath. He endorses simultaneous lower extremity bilateral edema. The patient states that shortness of breath is significantly worse with exertion and with lying flat. He endorses 3 days of a cough productive of yellow sputum. He denies any fever/chills. Denies any chest pain. No nausea/vomiting/diarrhea. CBC/BMP: 07/31/17 0540 08/04/17 0600 Significant Findings Laboratory Tests Test 08/02/17 10:05 08/03/17 07:45 08/04/17 06:00 Blood Urea Nitrogen 24 MG/DL (7-18) 26 MG/DL (7-18) 27 MG/DL (7-18) Creatinine 1.69 MG/DL (0.60-1.30) 1.83 MG/DL (0.60-1.30) 1.78 MG/DL (0.60-1.30) Random Glucose 222 MG/DL (74-106) 135 MG/DL (74-106) 121 MG/DL (74-106) Calcium Level 8.1 MG/DL (8.5-10.1) Chloride Level 110 MEQ/L (98-107) 108 MEQ/L (98-107) 109 MEQ/L (98-107) Estimat Glomerular Filtration Rate 40 ML/MIN (>89) 36 ML/MIN (>89) 37 ML/MIN (>89) Imaging Last Impressions Renal Ultrasound 07/30/17 0000 Signed Impressions: Service Date/Time: Sunday, July 30, 2017 21:40 - CONCLUSION: 1. Mildly increased echogenicity of the renal cortex suggesting underlying medical renal disease. 2. 5.5 x 5.4 cm simple cyst on the left. Ean Barlow MD Chest X-Ray 07/29/17 1810 Signed Impressions: Service Date/Time: Saturday, July 29, 2017 18:20 - CONCLUSION: 1. Mild cardiomegaly and positive fluid balance. 2. Trace bilateral pleural effusions and associated airspace disease at the lung bases, presumably atelectasis. Sabino Fuentes MD PE at Discharge awake and alert, no acute distress, good sats at room air anicteric no rales regular rhythm abdomen soft, no edema neuro exam- non focal Pt update on day of discharge awake and alert no chest pain 02 delivered to room- d/w patient and and CM Hospital Course 77 years old Hypertensive urgency presenting with acute CHF- SOB/leg swelling on admission with BNP 888 hyperlipidemia/CAD 02 NC prn - good sata at room air Echo - good EF, no valvular disease EKG with no acute changes hold ROBERTO with BENNETT and tendency for hyperkalemia Coreg 25 mg po bid. ASA daily Amlodpine up to 10 mg daily BENNETT on top of chronic- creatinine- stabilizing Hyponatremia- improved Lasix 20 mg daily Renal ultrasound- chronic medical disease- no obstruction HYperkalemia- resolved S/P Kayexalate 07/29 COPD- no wheezes continue on duonebs q 6- per patient on this scheduled Duo nebs prn when necessary check walk test prior to DC Diabetes mellitus- A1C - 6.7 Siding scale insulin Monitor blood glucose - as OP was on Glipiziede 2.5 mg bid- will DC - his metformin was DC per patient due to KI start Insulin once a day 70/30 bid - good readings diabetes teaching and reinforcement- insulin teaching patient will need diabetes education DVT prophylaxis Heparin -up and ambulating will need HHC arrangement, diabetes education Pt Condition on Discharge: Stable Discharge Disposition: Disch w/ Home Health Serv Discharge Time: > 30 minutes Discharge Instructions DIET: Follow Instructions for: Heart Healthy Diet, Diabetic Diet Speech Therapy-Diet Recommends: Regular Activities you can perform: Weight Bearing as Mary Activities to Avoid: Prolonged Standing, Strenuous Activity Follow up Referrals: Cardiology - 2 Weeks with Maximo Ramirez MD Nephrology - 1 Week with Jillian PCP Follow-up - 2-3 Days with [place] doctors New Medications: Insulin Aspart Protam-Asp 70-30 Inj (Novolog Mix 70-30 FlexPen Inj) 300 Unit/3 Ml Pen 5 UNITS SQ BID for Blood Sugar Management, #1 PEN 0 Refills Oxygen (O2) (Oxygen (O2)) Device LITER JOHNY.CANULA CONTINUOUS for Prevent Hypoxemia, #2 Oxygen Concentrator Portable Gaseous 2 L/min via Nasal Canula Continuous For 99 months Amlodipine (Norvasc) 10 Mg Tab 10 MG PO DAILY for HTN for 30 Days, #30 TAB Carvedilol (Coreg) 12.5 Mg Tab 25 MG PO Q12HR for CHF for 30 Days, TAB [Albuterol-Ipratropium Neb] () 1 AMPULE NEBU 1 AMPULE NEB Q6HR NEB for COPD for 30 Days [Budeson-Formot 160-4.5 Mcg Inh] () 60 PUFF AERO 1 PUFF INH Q12HR for COPD for 30 Days Continued Medications: Aspirin 81 mg chewable (Aspirin 81 mg chewable) 81 Mg Chw 81 MG PO DAILY, CHW Coenzyme Q10 (Ubidecarenone) (Co Q 10) 60 Mg Cap 60 MG PO DAILY, CAP Fish Oil (Bulk) (Fish Oil) Oil 1 DOSE PO DAILY Furosemide (Lasix 20 Mg Tab) 20 Mg Tab 20 MG PO DAILY, TAB Lutein (Lutein) 20 Mg Cap 20 MG PO DAILY, CAP Multiple Vitamin (Multi Vitamin Mens) Mens Tab 1 TAB PO DAILY Pravastatin Sod (Pravastatin Sodium) 10 Mg Tab 10 MG PO DAILY, TAB Tamsulosin Hcl (Flomax) 0.4 Mg Cap 0.4 MG PO DAILY for 10 Days, CAP Discontinued Medications: Atorvastatin (Lipitor 40 Mg Tab) 40 Mg Tab 40 MG PO DAILY, TAB Metoprolol Tartrate 25 mg (Metoprolol Tartrate 25 mg) 25 Mg Tab 50 MG PO DAILY, TAB Marycruz Acevedo MD Aug 04, 2017 10:46
[2017-08-04 10:47] VITALS: O2SAT 94
[2017-08-04] MEDS ORDERED: NOVOLOGMXP SQ (10:52)
[2017-08-04] MEDS ORDERED: NOVOINJ2 SQ (10:54)
[2017-08-04 12:05] VITALS: PULSE 60
--- NOTE | 2017-08-04 12:13 | HHI.NPPN ---
Subjective General Problems: Anemia Renal Failure: Chronic, Acute, Stage III History of Present Illness 77-year-old male with a past medical history significant for coronary artery disease, diabetes mellitus, COPD, hypertension, hyperlipidemia and CHF. Presents to ER for evaluation of shortness of breath. The patient reports that for the past 3 days he has had increasing shortness of breath, lower extremity bilateral edema, and orthopnea. Additional Remarks OOB sitting in chair. Mild lower extremity edema (Chandrika Cowan) Review of Systems Cardiovascular Cardiac: Edema (Chandrika Cowan) Gastrointestinal GI Remarks No abdominal pain (Chandrika Cowan) Objective Data Data Vital Signs Date Time Temp Pulse Resp B/P (MAP) Pulse Ox O2 Delivery O2 Flow Rate FiO2 08/04/17 10:47 94 Nasal Cannula 2.00 08/04/17 08:08 97.4 72 17 149/65 (93) 94 08/04/17 04:00 97.3 64 19 144/64 (90) 91 08/04/17 00:05 97.9 53 20 145/65 (91) 93 08/04/17 00:05 Nasal Cannula 2.00 08/03/17 23:47 57 08/03/17 20:10 94 Nasal Cannula 2.00 08/03/17 20:00 Nasal Cannula 2.00 08/03/17 20:00 98.0 72 20 150/67 (94) 97 08/03/17 19:49 37 08/03/17 16:00 62 08/03/17 16:00 99.4 63 18 155/78 (103) 93 (Chandrika Cowan) -: 07/31/17 0540 08/04/17 0600 Physical Exam General Appearance: No Acute Distress, Comfortable (Chandrika Cowan) Eyes Eye Exam: Pupils Equal (Chandrika Cowan) Throat Throat Exam: Oral Mucosa [place] & Moist (Chandrika Cowan) Pulmonary Resp Exam: Breath Sounds Equal, No Distress, Decreased Bases (Chandrika Cowan) Cardiology CV Exam: Regular, Normal Sinus Rhythm (Chandrika Cowan) Gastrointestinal/Abdomen GI Exam: Soft, Non-Tender, Bowel Sounds Present (Chandrika Cowan) Integumentary Skin Exam: Warm, Dry (Chandrika Cowan) Extremeties Extremities Exam: Trace Edema (Chandrika Cowan) Neurologic Neuro Exam: Alert, Awake, Oriented (Chandrika Cowan) Psychiatric Psych Exam: Appropriate Responses (Chandrika Cowan) Assessment/Plan Assessment Summary: BENNETT/Acute Renal Failure, CKD Stage III Problem List: (1) BENNETT (acute kidney injury) ICD Codes: N17.9 - Acute kidney failure, unspecified Plan: Patient has chronic kidney disease and develop BENNETT. 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 His Creatinine was 1.7 in December 2016 Proteinuria noted Renal US with mildly increased echogenicity of the renal cortex suggesting underlying medical renal disease and also 5.5 x 5.4 cm simple cyst on the left. Plan Creatinine near previous levels: 1.9 -> 1.6 -> 1.78 now. Mild lower extremity edema. On lasix Patient is cleared from nephrology stand point for discharge (2) Hyperkalemia ICD Codes: E87.5 - Hyperkalemia (3) CKD (chronic kidney disease) ICD Codes: N18.9 - Chronic kidney disease, unspecified (Chandrika Cowan) Problem List: (1) BENNETT (acute kidney injury) ICD Codes: N17.9 - Acute kidney failure, unspecified Plan: Patient has chronic kidney disease and develop BENNETT. 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 His Creatinine was 1.7 in December 2016 Proteinuria noted Renal US with mildly increased echogenicity of the renal cortex suggesting underlying medical renal disease and also 5.5 x 5.4 cm simple cyst on the left. Plan Creatinine near previous levels: 1.9 -> 1.6 -> 1.78 now. Mild lower extremity edema. On lasix Patient is cleared from nephrology stand point for discharge. Creatinine is stable, patient [place] [facility]. (2) Hyperkalemia ICD Codes: E87.5 - Hyperkalemia (3) CKD (chronic kidney disease) ICD Codes: N18.9 - Chronic kidney disease, unspecified (Elder Monterroso MD) Problem Qualifiers (1) CKD (chronic kidney disease): Qualified Codes: N18.9 - Chronic kidney disease, unspecified Chandrika Cowan Aug 04, 2017 12:13 Elder Monterroso MD Aug 04, 2017 19:35
--- NOTE | 2017-08-07 10:42 | RSPPFT ---
DATE OF PROCEDURE: 08/04/17 COMMENTS: Spirometry shows FVC of 1.2 at 44% of predicted, FEV1 of 0.9 at 43%, FEV1/FVC ratio is decreased. Flow is decreased at FEF 25, FEF 50, FEF 75 and FEF 25-75. There is a good response after bronchodilator treatment. Flow volume loop indicates an obstructive pattern. IMPRESSION: 1. Mild obstructive lung disease. 2. Good response after bronchodilator treatment.
== END 2017-08-04 15:12 | disposition home health service (06) | DRG 292 ==
LOC: NEPC 18:01 → NEDA 07-30 00:07 → N04A 07-30 01:28 → OBSVTOIN 07-30 15:02
PROVIDERS: ADMIT Internal Medicine; ATTEND Internal Medicine
DX: I50.9 Heart failure, unspecified (principal); I13.0 Hypertensive heart and chronic kidney disease with heart failure and stage 1 through stage 4 chronic kidney disease, or unspecified chronic kidney disease; N17.9 Acute kidney failure, unspecified; I47.2 Ventricular tachycardia; J91.8 Pleural effusion in other conditions classified elsewhere; J98.11 Atelectasis; E87.1 Hypo-osmolality and hyponatremia; E11.22 Type 2 diabetes mellitus with diabetic chronic kidney disease; J44.9 Chronic obstructive pulmonary disease, unspecified; I25.10 Atherosclerotic heart disease of native coronary artery without angina pectoris; R60.0 Localized edema; E78.5 Hyperlipidemia, unspecified; E66.9 Obesity, unspecified; N18.3 Chronic kidney disease, stage 3 (moderate); R19.7 Diarrhea, unspecified; R06.01 Orthopnea; R80.9 Proteinuria, unspecified; D64.9 Anemia, unspecified; I16.0 Hypertensive urgency; E87.5 Hyperkalemia; F17.210 Nicotine dependence, cigarettes, uncomplicated; Z95.1 Presence of aortocoronary bypass graft; Z98.84 Bariatric surgery status; Z68.33 Body mass index [BMI] 33.0-33.9, adult; Z79.899 Other long term (current) drug therapy
CPT/HCPCS: 71046; 76775; 80048; 80053; 81001; 82550; 82552; 82948; 83036; 83735; 83880; 83935; 84100; 84165; 84484; 84540; 85025; 85610; 85730; 86021; 86038; 93005; 93306; 94060; 94618; 94640; 94664; 96374; J1644; J1815; J1940; J3475; J7030